=== PATIENT | male | born 1940 | race Caucasian/White ===

== ENCOUNTER 2016-09-15 11:43 | Inpatient (IN) | payer MEDICARE ==
[~2016-09-15] VITALS: Ht 175.3 cm; Wt 91.6 kg
[2016-09-15] VITALS (10 sets, daily range): BP systolic 108–162; BP diastolic 61–87; PULSE 54–83; RESP 14–24; O2SAT 77–100
[~2016-09-15 11:43] MED LIST: ALBU8.5H2 INHALATION; AMLO5TAB2 PO; FURO40TA4 PO; HYDR-4003 PO; LOVA20TA PO
[2016-09-15] MEDS ORDERED: cefTRIAXone Inj 2,000 MG in IV Premix 1 EACH IV ONE (12:30)
[2016-09-15] MEDS ORDERED: Vancomycin Dose per Pharmacist XX ONE (12:30)
--- NOTE | 2016-09-15 12:37 | ABG ---
DateTimeAnalyzed 12:32:00 -_ pH ____7.240 - pCO2 ___78.9__ -mmHg pO2 ___41.2__ -mmHg HCO3- ___32.6__ -mmol/L ABE ____1.9__ -mmol/L tHb ___17.0__ -g/dL O2Hb ___65.1__ -% COHb ____2.0__ -% MetHb ____0.8__ -% sO2 ___67.0__ -% FIO2 __100.0__ -% Drawn By RN - Date/Time Notified____ 12:37:00 -_ Liter_Flow ___15.0__ -L/min Oxygen Device 1 NON RE-CHANDLER - Notified By btl - Notified Whom ___Dr. Laursen - B 768 -mmHg tO2 ___15.5__ -Vol%
--- NOTE | 2016-09-15 12:40 | ED.REPORT ---
HPI-Altered Mental Status Date of Service Sep 15, 2016 ED Provider: Jacqueline Padilla MD 76 male with reported past medical history of chronic back pain on narcotic pain medication presents to ED with secondary to 2 weeks of increasing somnolence and generalized weakness and lethargy. Per patient's , patient had a ground-level fall on August 28 striking head. He did not seek medical attention after fall. Over the last 2 weeks since states he has become increasingly sleepy and tired with a decrease in appetite. At time of interview to emergency department patient was saturating at mid 70s on nasal cannula. Nursing Notes Stated Complaint: WEAKNESS,NOT EATING Chief Complaint: General Complaint Nursing Notes Reviewed: Yes Allergies: Coded Allergies: No Known Allergies (Unverified Allergy, Unknown, 09/15/16) Scheduled Albuterol HFA (Proair HFA) 8.5 Gm Hfa.aer.ad 2 PUFFS INHALATION Q4H Amlodipine (Amlodipine) 5 Mg Tablet 5 MG PO DAILY Furosemide (Furosemide) 40 Mg Tablet 40 MG PO DAILY Lovastatin (Lovastatin) 20 Mg Tablet 20 MG PO HS Scheduled PRN Hydrocodone-Acetaminophen 5-325 mg (Hydrocodone-Acetaminophen 5-325 mg) 1 Each Tablet 1 TABLET PO Q4H PRN PRN For Pain General Time Seen by MD: 12:20 Chief Complaint Decreased alertness Hx Obtained From: Patient, Spouse Arrived By: Walk-in Sudden in Onset?: Yes Onset Occurred: More than a week ago... (2 weeks) Context of Onset: Head injury Symptom Duration: Since onset Progression since Onset: Gradually worsening Similar Sx Previous: Yes Past Medical History Smoking History Former Smoker Review of Systems Unable to Obtain ROS Patient condition Complete sys rev & neg: except as marked. Physical Exam General: Lethargic, responds to voice and painful stimuli cannot or will not answer questions. Extremely somnolent HEENT: Normocephalic, atraumatic. External ears without defect. Pupils equal, round, and reactive to light and accommodation Neck: No jugular venous distension. No lymphadenopathy or thyromegaly. Cardiovascular: Regular rate and rhythm with no murmurs, rubs, or gallops appreciated Pulmonary: Clear to auscultation bilaterally with no crackles, wheezes, or rhonchi. Normal respiratory effort with no use of accessory muscles. Abdomen: Distended abdomen pain to palpation right quadrants, no appreciable fluid wave posterior anasarca present. d. Extremities: Bilateral lower extremity edema extending to the thigh into pelvis. Skin: Lower extremities warm to touch, poor turgor turgor, bilateral erythema with pain to palpation. Psychiatric: Somnolent unable to follow most commands. Initial Vital Signs Vital Signs (First) Date Time Temp Pulse Resp B/P Pulse Ox O2 Delivery O2 Flow Rate FiO2 09/15/16 11:56 36.3 54 21 108/61 77 Room Air Initial VS: Reviewed Interpretation & Diagnostics CT BRAIN WITHOUT CONTRAST IMPRESSION: No acute intracranial abnormality. Dictated by: Minnie Nguyễn M.D. on 09/15/2016 at 13:00 X-RAY CHEST ONE VIEW, PORTABLE IMPRESSION: Small right pleural effusion and basilar opacity consistent with compressive atelectasis, pneumonia or neoplasm. Continued radiographic surveillance to resolution is recommended. Dictated by: Hermilo Turner RRA Interpreted: Aba Silverman MD on 09/15/2016 at 13:07 Lab Results Interpretation Result Diagram: 09/15/16 1309 09/15/16 1309 Test 09/15/16 13:09 09/15/16 14:33 White Blood Count 6.3th/mm3 (3.8-10.1) Red Blood Count 6.41mil/mm3 (4.40-5.80) Hemoglobin 16.5g/dL (13.8-17.2) Hematocrit 55.5% (41.0-50.0) Mean Corpuscular Volume 86.6fL (81-100) Mean Corpuscular Hemoglobin 25.7pg (27.0-35.0) Mean Corpuscular Hemoglobin Concent 29.7% (32.0-37.0) Red Cell Distribution Width 19.1% (12.3-15.4) Platelet Count 190bil/L (150-400) Neutrophils (%) (Auto) 73.7% (40-74) Lymphocytes (%) (Auto) 15.5% (14-46) Monocytes (%) (Auto) 9.1% (4-12) Eosinophils (%) (Auto) 1.0% (0-5) Basophils (%) (Auto) 0.5% (0-3) Sodium Level 142mEq/L (134-144) Potassium Level 5.7mEq/L (3.5-5.2) Chloride Level 102mEq/L (97-108) Carbon Dioxide Level 29mmol/L (18-29) Blood Urea Nitrogen 52mg/dL (8-27) Creatinine 1.24mg/dL (0.76-1.27) Estimat Glomerular Filtration Rate 60mL/min (>59) Glucose Level 92mg/dL (60-99) Lactic Acid Level 0.9mmol/L (0.4-2.0) Calcium Level 9.5mg/dL (8.5-10.1) Total Bilirubin 0.6mg/dL (0.0-1.2) Aspartate Amino Transf (AST/SGOT) 33U/L (0-50) Alanine Aminotransferase (ALT/SGPT) 21U/L (0-44) Alkaline Phosphatase 76U/L (25-160) Total Protein 7.7g/dL (6.4-8.4) Albumin 4.1g/dL (3.4-5.0) Procalcitonin < 0.05ng/mL (See Comment) Ammonia 47ug/dL (18-53) Lab Results Interpretation: Blood Gas Report: pH: 7.240 pCO2: 79 cHCO3-: 32.6 cBase: 1.9 After one hour of BIPAP, BLood Gas is repeated with minimal changes: pH: 7.238 pCO2: pO2: 76.6 cHCO3-: 31.9 cBase: 1.6 However, pt is able to talk in full sentences and is behaving appropriately X-Ray Chest Interpretation Chest Xray Interpretation: IMPRESSION: Small right pleural effusion and basilar opacity consistent with compressive atelectasis, pneumonia or neoplasm. Continued radiographic surveillance to resolution is recommended. Dictated by: Hermilo SANTACRUZ Interpreted: Aba Silverman MD on 09/15/2016 at 13:07 Interpretation / Wet Read by: Interpret - Radiologist CT Head Interpretation IMPRESSION: No acute intracranial abnormality. Dictated by: Minnie Nguyễn M.D. on 09/15/2016 at 13:00 Study: Head CT no contrast Interpretation / Wet Read by: Interpret - Radiologist Miscellaneous: Atrophy - moderate Re-Eval/Medical Decision Med Decision/Clinical Course at time of initial interview patient saturating mid 70s on nasal cannula and was extremely somnolent and difficult to arouse, this was increased to high flow O2 with nonrebreather with improvement of saturation and slight improvement in patient's mentation. patient initially given Narcan secondary to known use of prescription narcotic medication with no effect. A CT brain noncontrast showed no evidence of intracranial abnormality. ABGs showed a partially compensated respiratory acidosis. patient placed on BiPAP with a near immediate positive response, patient became more alert and oriented and was able to answer questions appropriately. repeat ABGs approximately 1 hour after being taken off BiPAP still showed a respiratory acidosis. Concern for infection remained though white blood cell count was within normal limits and procalcitonin was unremarkable as well. Chest x-ray showed small right pleural effusion possibly atelectasis pneumonia or neoplasm. CT chest and abdomen showed significant pleural effusion in the right lung, differential includes CHF, pneumonia or neoplastic process. Patient started on ceftriaxone and vancomycin in the ED blood cultures obtained prior to ABX administration. Patient will most likely need a diagnostic thoracentesis for further evaluation. Patient admitted to PCC setting physician Dr. Garcia. Source of Hx: Old records, Family Re-Evaluation/Progress #1: Time of Eval: 12:44 Re-Evaluation/Progress Note: Narcan did not affect the pt's symptoms. Re-Evaluation/Progress #2: Time of Eval: 13:09 Re-Evaluation/Progress Note: Pt is rechecked. He appears to be resting comfortbaly, he is informed of his lab and imaging results and the plan to continue to obtain additional information prior to making a plan. Counseled Regarding: Diagnosis, Lab results, Need for follow-up, When/why to return to ED Patient Discharge & Departure Shift Change Sign-Out Patient Care Transferred: Yes Discussed Complaint(s): Yes Laboratory Evaluation: Lab evaluation discussed Imaging Studies: Imaging discussed Response to Therapy: Improved Impression: Primary Impression: Acute hypercapnic respiratory failure Disposition: ADMITTED TO HOSPITAL Discharge Condition All VS Reviewed: Yes Condition: Stable Referrals: Eugenio Yo MD (PCP) Crit Care Except Billable Proc Time Spent: 30-74 minutes Services Performed: Patient management by me, Time spent at bedside, Reviewing test results, Reviewing imaging, Discussing patient care, Documentation in record, Time with fam/surrogate Scribe Attestation Portions of this note were transcribed by Ronit Gray. I, Dr. Padilla personally performed the history, physical exam and medical decision-making; I reviewed and confirmed the accuracy of the information in the transcribed note. Signed by: Patrizia Anderson, 09/15/2016 14:50 Attending Statement Pt seen and examined Decreased mental status - on chronic narcotics, recent fall with head injury ( not yet evaluated), cough, LE edema/redness Initial concerns: subdural (normal head CT), sepsis (labs, cultures, abx started ), accidental narcotic overdose (no response to narcan), CHF (no lasix yet due to hemodynamic concerns). CXR returns with Right plural effusion - CT chest pending (?pneumonia/CHF/tumor) Respiratory failure with hypercarbia. BiPap started, tolerating. DNR/DNI Will need PCU admission. Discussed with Swing shift Hospitalist Agree with plan as above copies to: Eugenio Yo MD, GILES A DO Sep 15, 2016 12:40 DAVID GRAY Sep 15, 2016 12:44 Jacqueline Padilla MD Sep 15, 2016 15:20
--- NOTE | 2016-09-15 13:02 | DRSVH ---
PROCEDURE: CT BRAIN WITHOUT CONTRAST ([id number]) INDICATIONS: Decreased LOC TECHNIQUE: Noncontrast 4.5 mm thick angled axial sections acquired from the foramen magnum to the vertex, with c oronal reformats. COMPARISON: None. FINDINGS: Image quality: Excellent. CSF spaces: Basal cisterns are patent. No extra-axial fluid collections. The ventricles are symmet rashid in size and shape. Brain: No intracranial bleeds or masses. There is cerebral volume loss for age, with resultant vent ricular and sulcal prominence. There are periventricular and deep white matter chronic small vessel ischemic changes. There is intracranial internal carotid artery atherosclerosis. Skull and face: Calvarium and visualized facial bones appear intact, without suspicious lesions. Sinuses: Visualized sinuses and mastoids are clear. IMPRESSION: No acute intracranial abnormality. Dictated by: Minnie Nguyễn M.D. on 09/15/2016 at 13:00 Approved by: Minnie Nguyễn M.D. on 09/15/2016 at 13:00
--- NOTE | 2016-09-15 13:08 | DRSVH ---
PROCEDURE: X-RAY CHEST ONE VIEW, PORTABLE ([id number]) INDICATIONS: Previous Trauma TECHNIQUE: One view of the chest was acquired. COMPARISON: [facility], CT, CT CHEST W CON, 09/15/2016, 14:45. [facility], CT, CT CHEST WO CON, 06/06/2015, 15:47. FINDINGS: Surgical changes and devices: None. Lungs and pleura: Small right pleural effusion present in right basilar airspace opacity. Lungs othe rwise clear. Mediastinum: Mediastinal contours appear normal. Heart size is normal. Bones and chest wall: No suspicious bony lesions. Overlying soft tissues appear unremarkable. IMPRESSION: Small right pleural effusion and basilar opacity consistent with compressive atelectasis, pneumonia or neoplasm. Continued radiographic surveillance to resolution is recommended. Dictated by: Hermilo Turner Rocky Interpreted: Aba Silverman MD on 09/15/2016 at 13:07 Transcribed by: WILMER on 09/15/2016 at 13:07 Approved by: Aba Silverman M.D. on 09/15/2016 at 17:04
[2016-09-15 13:20] LABS: BASOPHILS % (AUTO) 0.5 % (0-3); MONOCYTES % (AUTO) 9.1 % (4-12); Mean Corpuscular Hemoglobin 25.7 pg (27.0-35.0); Mean Corpuscular Volume 86.6 fL (81-100); NEUTROPHILS % (AUTO) 73.7 % (40-74); Platelet Count 190 bil/L (150-400)
[2016-09-15] MEDS ORDERED: Vancomycin Inj 1,750 MG in Dextrose 5% 500 ML IV ONE (13:25)
--- NOTE | 2016-09-15 14:23 | ABG ---
DateTimeAnalyzed 14:18:00 -_ pH ____7.238 - 7.350 7.450 pCO2 ___77.4__ -mmHg 35.0 45.0 pO2 ___76.6__ -mmHg 69.0 116 HCO3- ___31.9__ -mmol/L 22.0 26.0 ABE ____1.6__ -mmol/L -2.0 2.0 tHb ___16.2__ -g/dL O2Hb ___90.8__ -% COHb ____1.8__ -% MetHb ____0.8__ -% sO2 ___93.2__ -% 25.0 FIO2 ___50.0__ -% Set_RR ___18.0__ -b/min Drawn By btl - Date/Time Notified____ 14:22:00 -_ Spontaneous_RR ___26.0__ -b/min Oxygen Device 1 ____BIPAP - Notified By BTL - Notified Whom ___Dr. Laursen - B 767 -mmHg tO2 ___20.6__ -Vol% Mark test N/A -
--- NOTE | 2016-09-15 15:14 | DRSVH ---
PROCEDURE: CT CHEST WITH CONTRAST ([id number]) INDICATIONS: Poss Pnemonia,shortness of breath TECHNIQUE: After the administration of intravenous contrast, 5 mm thick sections acquired from the pulmonary api tiffany to the posterior costophrenic angles. 7 mm thick coronal and sagittal MIP reformats were acquire d. For radiation dose reduction, the following was used: automated exposure control, adjustment of mA and/or kV according to patient size. COMPARISON: [facility], CT, CT CHEST WO CON, 06/06/2015, 15:47. [facility], CR, XR CHEST 1VW (PORTABLE), 09/15/2016, 12:29. FINDINGS: Image quality: Excellent. Lungs and pleura: Small right-sided pleural fluid collection is noted. Trace left-sided pleural fluid collection is noted. 1.4 and 1.5 cm calcifications involving the right basilar pleura are stable com pared to prior examination. Consultations are suspicious for thoracolithiasis. Consolidation noted in the right lung base which could represent atelectasis, aspiration or pneumonia. Central and peripher al airways are patent and normal in caliber. Mediastinum: Heart size is normal. Mitral annulus calcifications are noted. Atherosclerotic calcific ations are noted in the aorta, great vessels and coronary vasculature. No pericardial effusion. No m ediastinal or hilar adenopathy by size criteria. Thoracic aorta and central pulmonary arteries are n ormal in size. Esophagus is normal in caliber. No hiatal hernia. Bones and chest wall: Degenerative disc disease and facet arthropathy are noted in the spine. No ukmar picious bony lesions. No vertebral body compression fractures. No axillary or supraclavicular adeno lin by size criteria. Thyroid gland is within normal limits. Probable 1.8 cm in diameter a sebaceo us cyst is noted in the subcutaneous fat of the upper midline of the chest. Abdomen: Ascites is noted the visualized portion the abdomen. Liver has slightly nodular margins sugg esting hepatic cirrhosis; please correlate to clinical and laboratory data. IMPRESSION: 1. Right basilar opacity with small right-sided pleural fluid collection compatible with pneumonia, a spiration or compressive atelectasis. Please correlate with clinical and laboratory data. 2. Right pleural calcification stable compared to 06/06/2015. 3. Atherosclerosis including the coronary vascular. 4. Ascites. 5. Liver has slightly nodular margins suspicious for hepatic cirrhosis. Please correlate to clinical and laboratory data. Dictated by: Zuleyma Gorman MD, PhD on 09/15/2016 at 15:12 Approved by: Zuleyma Gorman MD, PhD on 09/15/2016 at 15:12
[2016-09-15] MEDS ORDERED: Ondansetron 2 mg/mL 2 mL Inj IVPUSH PRN (15:25)
[2016-09-15] MEDS ORDERED: Polyethylene Glycol (PEG) 17 Gm Powder PO PRN (15:25)
[2016-09-15] MEDS ORDERED: Alum-Mag Hydrox-Simeth 30 mL Suspension PO PRN (15:25)
[2016-09-15] MEDS ORDERED: MethylprednisoLONE Sodium Succinate 62.5 mg/mL 2 mL Inj IVPUSH ONE (15:30)
[2016-09-15] MEDS ORDERED: CHOL100043 PO (15:50)
[2016-09-15] MEDS ORDERED: ASPI-973 PO (15:50)
[2016-09-15] MEDS: Heparin 5,000 Unit/mL Inj SUBQ SCH (18:24)
--- NOTE | 2016-09-15 19:10 | NUR ---
admit from ER pt. brought to 2021 at 1730 this evening; vss; bipap at 50% per RT; continuous pulse ox in place, sats 95-97%. Pt. drowsy but easy to awaken by name, oriented x3; answering questions appropriately. SCD's in place. Denies pain or discomfort.
[2016-09-15] MEDS: Albuterol-Ipratropium 3 mL Inhalation Solution NEB SCH (20:04)
--- NOTE | 2016-09-15 20:43 | ABG ---
DateTimeAnalyzed 20:39:00 -_ pH ____7.220 - 7.350 7.450 pCO2 ___78.6__ -mmHg 35.0 45.0 pO2 ___68.1__ -mmHg 69.0 116 HCO3- ___31.0__ -mmol/L 22.0 26.0 ABE ____0.2__ -mmol/L -2.0 2.0 tHb ___16.9__ -g/dL O2Hb ___88.5__ -% COHb ____1.6__ -% MetHb ____0.9__ -% sO2 ___90.8__ -% 25.0 FIO2 ___21.0__ -% PEEP ____5.0__ -cmH2O Vt __388.0__ -L Drawn By MD - Date/Time Notified____ 20:43:00 -_ Spontaneous_RR ___16.0__ -b/min Oxygen Device 1 ____BIPAP - Notified By MD - Notified Whom RN E.KNAPP - B 766 -mmHg tO2 ___21.0__ -Vol% OrderingPhysicianInitials mf - Mark test N/A -
--- NOTE | 2016-09-15 22:10 | ABG ---
DateTimeAnalyzed 22:05:00 -_ pH ____7.236 - 7.350 7.450 pCO2 ___76.0__ -mmHg 35.0 45.0 pO2 ___72.4__ -mmHg 69.0 116 HCO3- ___31.1__ -mmol/L 22.0 26.0 ABE ____0.8__ -mmol/L -2.0 2.0 tHb ___16.6__ -g/dL O2Hb ___90.1__ -% COHb ____1.7__ -% MetHb ____0.9__ -% sO2 ___92.5__ -% 25.0 FIO2 ___21.0__ -% PEEP ____5.0__ -cmH2O Set_RR ___18.0__ -b/min Vt __607.0__ -L Drawn By MD - Date/Time Notified____ 22:09:00 -_ Spontaneous_RR ___18.0__ -b/min Oxygen Device 1 ____BIPAP - Notified By MD - Notified Whom RN E. KNAPP - B 766 -mmHg tO2 ___21.0__ -Vol% Mark test N/A -
--- NOTE | 2016-09-15 23:08 | PCM.HPMED ---
Subjective Date of Service Sep 15, 2016 Primary Provider: Admitting Physician: Primary Care Physician: Eugenio Yo MD Attending Physician: Admit Status: From the Emergency Department, Full Admit, [facility] Telemetry Chief Complaint: Acute Encephalopathy History of Present Illness: Saleem Salinas is a 76 male with Chronic back pain, COPD/asthma, associated with secondary chronic polycythemia presents to ED with secondary to 2 weeks of increasing somnolence and generalized weakness and lethargy. per patient's , patient had a ground-level fall on August 28 striking head. He did not seek medical attention after fall. Over the last 2 weeks since states he has come increasingly sleepy and tired with a decrease in appetite. Some reported dry cough but unclear if patient had fever or chills. No sick contacts at the home Case discussed with Dr Dumont, Patient placed in BIPAP with some improvements. left prior to my arrival to the ED. Review of Systems: Pertinent positives as noted in HPI. All other systems were reviewed and are negative Allergies Coded Allergies: No Known Allergies (Unverified Allergy, Unknown, 09/15/16) Home Medications Saleem Salinas [id number] 1940 05/28/2016 11:20 AM 09/24 amlodipine 5 mg tablet TAKE ONE TABLET BY MOUTH EVERY DAY aspirin 81 mg Tab take 1 tablet (81MG) by ORAL route 2-3 times a week furosemide 40 mg tablet TAKE ONE TABLET BY MOUTH ONCE A DAY hydrocodone 5 mg-acetaminophen 325 mg tablet take 1 tablet by oral route 1-2 times a day as needed for pain lovastatin 20 mg tablet take 1 tablet by oral route every day with the evening meal ProAir HFA 90 mcg/actuation aerosol inhaler INHALE ONE TO TWO PUFFS BY MOUTH EVERY 4 TO 6 HOURS NEEDED Vitamin D 1,000 unit Cap 1 tablet po QD PMH COPD/asthma, associated with secondary chronic polycythemia. Hematocrit was 58 % in June 2015. Insomnia Hyperlipidemia Hypertension Aortic stenosis Back pain Erythrocytosis Prediabetes Gout . Surgical History none reported Family History Father had Prostate Cancer Mother had Stroke Social History Hx Alcohol Use: Yes (current) Hx Tobacco Use: Yes Smoking Status: Former Smoker (quit in 1998) Living Arrangement: with Family Exam Vital Signs Vital Sign - Last Date Time Temp Pulse Resp B/P Pulse Ox O2 Delivery O2 Flow Rate FiO2 09/15/16 14:57 74 14 162/87 95 BiPAP 09/15/16 11:56 36.3 Exam General: Alert, Oriented X3, Cooperative, Mild respiratory acute Distress Eyes: PERRLA, Scleral Anicteric Mouth: Mouth Normal, Mucous Membranes Moist/[place] Neck: Supple, no Thyromegaly, trachea central. Chest & Lungs: crackles lower right lung field Cardiovascular: Normal S1, Normal S2, No Murmurs/Rubs/Gallops, Regular Rate/ Rhythm, (No JVD Pulses: Radial (present and equal), Dorsalis Pedi (present and equal) Abdomen: Soft, Non-tender, Non-distended, Normoactive bowel tones. Musculoskeletal: Unremarkable. Normal range of motion, no swollen or erythematous joints Extremities: 2 + pitting edema, no cyanosis, no clubbing. Skin: No rashes. Warm and dry, no erythematous areas. Leg venous stasis changes Neurological: Grossly neurologically intact, has generalized weakness, Normal Speech, Sensation Intact Lymphatic: Lymph nodes Cervical and Axillary not palpable. Lab and Diagnostics Labs Laboratory Tests Test 09/15/16 13:09 09/15/16 14:33 White Blood Count 6.3th/mm3 (3.8-10.1) Red Blood Count 6.41mil/mm3 (4.40-5.80) Hemoglobin 16.5g/dL (13.8-17.2) Hematocrit 55.5% (41.0-50.0) Mean Corpuscular Volume 86.6fL (81-100) Mean Corpuscular Hemoglobin 25.7pg (27.0-35.0) Mean Corpuscular Hemoglobin Concent 29.7% (32.0-37.0) Red Cell Distribution Width 19.1% (12.3-15.4) Platelet Count 190bil/L (150-400) Neutrophils (%) (Auto) 73.7% (40-74) Lymphocytes (%) (Auto) 15.5% (14-46) Monocytes (%) (Auto) 9.1% (4-12) Eosinophils (%) (Auto) 1.0% (0-5) Basophils (%) (Auto) 0.5% (0-3) Sodium Level 142mEq/L (134-144) Potassium Level 5.7mEq/L (3.5-5.2) Chloride Level 102mEq/L (97-108) Carbon Dioxide Level 29mmol/L (18-29) Blood Urea Nitrogen 52mg/dL (8-27) Creatinine 1.24mg/dL (0.76-1.27) Estimat Glomerular Filtration Rate 60mL/min (>59) Glucose Level 92mg/dL (60-99) Lactic Acid Level 0.9mmol/L (0.4-2.0) Calcium Level 9.5mg/dL (8.5-10.1) Total Bilirubin 0.6mg/dL (0.0-1.2) Aspartate Amino Transf (AST/SGOT) 33U/L (0-50) Alanine Aminotransferase (ALT/SGPT) 21U/L (0-44) Alkaline Phosphatase 76U/L (25-160) Total Protein 7.7g/dL (6.4-8.4) Albumin 4.1g/dL (3.4-5.0) Procalcitonin < 0.05ng/mL (See Comment) Ammonia 47ug/dL (18-53) Microbiology 09/15/16 Blood Culture, Received Pending Result Diagram: 09/15/16 1309 09/15/16 1309 X-Rays, CTs and MRIs X-RAY CHEST ONE VIEW, PORTABLE ([id number]) INDICATIONS: Previous Trauma TECHNIQUE: One view of the chest was acquired. COMPARISON: [facility], CT, CT CHEST WO CON, 06/06/2015, 15:47. FINDINGS: Surgical changes and devices: None. Lungs and pleura: Small right pleural effusion present in right basilar airspace opacity. Lungs otherwise clear. Mediastinum: Mediastinal contours appear normal. Heart size is normal. Bones and chest wall: No suspicious bony lesions. Overlying soft tissues appear unremarkable. IMPRESSION: Small right pleural effusion and basilar opacity consistent with compressive atelectasis, pneumonia or neoplasm. Continued radiographic surveillance to resolution is recommended. Dictated by: Hermilo Turner RRA Interpreted: Aba Silverman MD on 09/15/2016 at 13:07 Transcribed by: WILMER on 09/15/2016 at 13:07 CT BRAIN WITHOUT CONTRAST ([id number]) INDICATIONS: Decreased LOC TECHNIQUE: Noncontrast 4.5 mm thick angled axial sections acquired from the foramen magnum to the vertex, with coronal reformats. COMPARISON: None. FINDINGS: Image quality: Excellent. CSF spaces: Basal cisterns are patent. No extra-axial fluid collections. The ventricles are symmetric in size and shape. Brain: No intracranial bleeds or masses. There is cerebral volume loss for age , with resultant ventricular and sulcal prominence. There are periventricular and deep white matter chronic small vessel ischemic changes. There is intracranial internal carotid artery atherosclerosis. Skull and face: Calvarium and visualized facial bones appear intact, without suspicious lesions. Sinuses: Visualized sinuses and mastoids are clear. IMPRESSION: No acute intracranial abnormality. Dictated by: Minnie Nguyễn M.D. on 09/15/2016 at 13:00 Approved by: Minnie Nguyễn M.D. on 09/15/2016 at 13:00 CT CHEST WITH CONTRAST ([id number]) INDICATIONS: Poss Pnemonia,shortness of breath TECHNIQUE: After the administration of intravenous contrast, 5 mm thick sections acquired from the pulmonary apices to the posterior costophrenic angles. 7 mm thick coronal and sagittal MIP reformats were acquired. For radiation dose reduction , the following was used: automated exposure control, adjustment of mA and/or kV according to patient size. COMPARISON: [facility], CT, CT CHEST WO CON, 06/06/2015, 15:47. [facility], CR, XR CHEST 1VW (PORTABLE), 09/15/2016, 12:29. FINDINGS: Image quality: Excellent. Lungs and pleura: Small right-sided pleural fluid collection is noted. Trace left-sided pleural fluid collection is noted. 1.4 and 1.5 cm calcifications involving the right basilar pleura are stable compared to prior examination. Consultations are suspicious for thoracolithiasis. Consolidation noted in the right lung base which could represent atelectasis, aspiration or pneumonia. Central and peripheral airways are patent and normal in caliber. Mediastinum: Heart size is normal. Mitral annulus calcifications are noted. Atherosclerotic calcifications are noted in the aorta, great vessels and coronary vasculature. No pericardial effusion. No mediastinal or hilar adenopathy by size criteria. Thoracic aorta and central pulmonary arteries are normal in size. Esophagus is normal in caliber. No hiatal hernia. Bones and chest wall: Degenerative disc disease and facet arthropathy are noted in the spine. No suspicious bony lesions. No vertebral body compression fractures. No axillary or supraclavicular adenopathy by size criteria. Thyroid gland is within normal limits. Probable 1.8 cm in diameter a sebaceous cyst is noted in the subcutaneous fat of the upper midline of the chest. Abdomen: Ascites is noted the visualized portion the abdomen. Liver has slightly nodular margins suggesting hepatic cirrhosis; please correlate to clinical and laboratory data. IMPRESSION: 1. Right basilar opacity with small right-sided pleural fluid collection compatible with pneumonia, aspiration or compressive atelectasis. Please correlate with clinical and laboratory data. 2. Right pleural calcification stable compared to 06/06/2015. 3. Atherosclerosis including the coronary vascular. 4. Ascites. 5. Liver has slightly nodular margins suspicious for hepatic cirrhosis. Please correlate to clinical and laboratory data. Dictated by: Zuleyma Gorman MD, PhD on 09/15/2016 at 15:12 Approved by: Zuleyma Gorman MD, PhD on 09/15/2016 at 15:12 Assessment & Plan Saleem Salinas is a 76 male with Chronic back pain, COPD/asthma, associated with secondary chronic polycythemia presents to ED with secondary to 2 weeks of increasing somnolence and generalized weakness and lethargy. 1. Acute Hypercapnic Hypoxic Respiratory failure secondary to COPD exacerbation. Present on admission Patient likely had a pulmonary infection that triggered his COPD exacerbation. Pulmonary embolism less likely with Wells score 0 - continue BIPAP support, patient wish to intubate if needed - systemic steroids Solu-Medrol 125 mcg IV - DuoNeb treatments scheduled - consider Pulmonology consult in the morning depending on clinical course 2. Acute Encephalopathy. Present on admission Likely related to his respiratory failure and infection. CT head negative for bleeding - monitor for acute neurological deficits - avoid benzodiazepines, high risk for delirium 3. Possible Community acquired pneumonia. Present on admission Possibility the patient may have aspirated but unclear. He may be immunocompromised from his polycythemia -continue Ceftriaxone IV for empiric antibiotics - sputum and blood cultures 4. Hypertension Presumed stable and currently at good levels - continue Amlodipine 5 mg daily 5. Dyslipidemia - continue Lovastatin 20 mg daily - Acetaminophen as needed for mild pain/fever/headache - Bowel regimen as needed - Antiemetic as needed Patient admitted under inpatient status with expected length of stay > 2 midnights for severity of present symptoms, complexities of treatment plan and risk for adverse event . Resuscitation Status: CPR: Attempt Resuscitation Karri Rios MD Sep 15, 2016 15:24
[2016-09-16] VITALS (13 sets, daily range): BP systolic 113–144; BP diastolic 63–88; PULSE 66–83; RESP 18–24; O2SAT 92–98
[2016-09-16] MEDS: Albuterol-Ipratropium 3 mL Inhalation Solution NEB SCH ×6 (00:44→20:04)
[2016-09-16] MEDS: Heparin 5,000 Unit/mL Inj SUBQ SCH ×2 (00:55→08:38)
--- NOTE | 2016-09-16 01:04 | ABG ---
DateTimeAnalyzed 00:59:00 -_ pH ____7.234 - 7.350 7.450 pCO2 ___76.7__ -mmHg 35.0 45.0 pO2 ___73.9__ -mmHg 69.0 116 HCO3- ___31.3__ -mmol/L 22.0 26.0 ABE ____0.8__ -mmol/L -2.0 2.0 tHb ___16.8__ -g/dL O2Hb ___90.4__ -% COHb ____1.8__ -% MetHb ____0.8__ -% sO2 ___92.8__ -% 25.0 FIO2 ___21.0__ -% PEEP ____5.0__ -cmH2O Set_RR ___18.0__ -b/min Vt __669.0__ -L Drawn By MD - Date/Time Notified____ 01:03:00 -_ Spontaneous_RR ___21.0__ -b/min Oxygen Device 1 ____BIPAP - Notified By MD - Notified Whom _E KNAPP - B 764 -mmHg tO2 ___21.3__ -Vol% OrderingPhysicianInitials mf - Mark test N/A -
[2016-09-16 05:06] LABS: BASOPHILS % (AUTO) 0 % (0-3); EOSINOPHILS % (AUTO) 0 % (0-5); MONOCYTES % (AUTO) 0.7 % (4-12); Mean Corpuscular Hemoglobin 25.5 pg (27.0-35.0); Mean Corpuscular Volume 87.3 fL (81-100); NEUTROPHILS % (AUTO) 89.4 % (40-74); Platelet Count 175 bil/L (150-400)
--- NOTE | 2016-09-16 05:54 | ABG ---
DateTimeAnalyzed 05:50:00 -_ pH ____7.243 - 7.350 7.450 pCO2 ___76.6__ -mmHg 35.0 45.0 pO2 ___66.4__ -mmHg 69.0 116 HCO3- ___31.9__ -mmol/L 22.0 26.0 ABE ____1.5__ -mmol/L -2.0 2.0 tHb ___16.7__ -g/dL O2Hb ___88.6__ -% COHb ____1.7__ -% MetHb ____0.9__ -% sO2 ___91.0__ -% 25.0 FIO2 ___40.0__ -% PEEP ____5.0__ -cmH2O Set_RR ___18.0__ -b/min Vt __696.0__ -L Drawn By RB - Date/Time Notified____ 05:54:00 -_ Spontaneous_RR ___18.0__ -b/min Oxygen Device 1 ____BIPAP - Notified By RB - Notified Whom RN - B 761 -mmHg tO2 ___20.8__ -Vol% Mark test _Positive -
[2016-09-16 06:16] LABS: APPEARANCE,URINE CLEAR (CLEAR,HAZY); COLOR,URINE YELLOW (YELLOW); OCCULT BLOOD,URINE NEGATIVE (NEGATIVE); PH,URINE 5.5 (5.0-8.0); UROBILINOGEN,URINE NORMAL (NORMAL)
--- NOTE | 2016-09-16 06:33 | NUR ---
Mentation/BiPAP Pt noted to be very somnolent at beginning of shift after day nurse stated he was sleepy but oriented x3 when he first arrived to floor, pt could barely open eyes and made grunting noises in response to questions. MD notified of this and ordered repeat ABGs, MD notified of worsened acidosis and adjustment to BiPAP settings by RT. With reassessed ABGs pt continues to have partially compensate respiratory acidosis. Pt continues to be very somnolent and hard to wake, occasionally answers that he is in the hospital but very difficult to understand. Night MD aware of all this. No other neuro deficits noted. BIPAP now set at 60% Sitter at bedside d/t somnolence/confusion and use of BiPAP. Vitals stable. Tele SR w/ IVCD
[2016-09-16] MEDS ORDERED: cefTRIAXone Inj 2,000 MG in IV Premix 1 EACH IV SCH (08:30)
[2016-09-16] MEDS ORDERED: 0.9% Sodium Chloride 250 ML ONE (08:39)
[2016-09-16 09:38] LABS: Mean Corpuscular Hemoglobin 25.7 pg (27.0-35.0); Mean Corpuscular Volume 87.2 fL (81-100)
[2016-09-16] MEDS ORDERED: 0.9% Sodium Chloride 1,000 ML ONE (10:34)
[2016-09-16] MEDS ORDERED: Calcium GLUCO 10% (mEq) Inj 4.65 MEQ in Dextrose 5% 50 ML IV ONE (10:45)
[2016-09-16] MEDS ORDERED: Calcium GLUCOnate 10% (Gm) 1 Gm/10 mL Inj IV ONE (11:00)
[2016-09-16] MEDS: MethylprednisoLONE Sodium Succinate 40 mg/mL Inj IVPUSH SCH ×2 (13:13→17:35)
--- NOTE | 2016-09-16 13:15 | ABG ---
DateTimeAnalyzed 13:11:00 -_ pH ____7.297 - 7.350 7.450 pCO2 ___64.6__ -mmHg 35.0 45.0 pO2 ___59.7__ -mmHg 69.0 116 HCO3- ___30.6__ -mmol/L 22.0 26.0 ABE ____2.1__ -mmol/L -2.0 2.0 tHb ___16.6__ -g/dL O2Hb ___87.3__ -% COHb ____1.5__ -% MetHb ____0.9__ -% sO2 ___89.4__ -% 25.0 FIO2 ___30.0__ -% PEEP ____5.0__ -cmH2O Set_RR ___18.0__ -b/min Vt __500.0__ -L Drawn By as - Date/Time Notified____ 13:15:00 -_ Spontaneous_RR ___18.0__ -b/min Oxygen Device 1 ____BIPAP - Notified By ams - Notified Whom dr mccart - B 759 -mmHg tO2 ___20.3__ -Vol% Mark test _Positive -
[2016-09-16] MEDS ORDERED: Insulin Human REGular-Omnicell 100 Unit/mL IV ONE (13:20)
[2016-09-16] MEDS ORDERED: Heparin 5,000 Unit/mL Inj IVPUSH PRN (14:55)
[2016-09-16] MEDS: Erythromycin 0.5% 3.5 Gm Ophthalmic Ointment BOTH_EYES SCH ×2 (15:06→21:50)
[2016-09-16] MEDS: Lactated Ringer's 1,000 ML IV SCH (15:07)
[2016-09-16] MEDS: Heparin 25K Unit/500mL 0.45 NS 25,000 UNIT in IV Premix 1 EACH IV SCH (15:30)
[2016-09-16 15:52] LABS: Creatine Kinase 35 U/L (21-232)
[2016-09-16 16:02] LABS: TROPONIN T < 0.010 ug/L (0.0-0.011)
--- NOTE | 2016-09-16 16:13 | CONS ---
[address] [address] CONSULTATION REPORT PATIENT: ANABELA FLOWERS : 1940 MR#: [id number] ADMIT: 09/15/2016 JOB ID: [id number] DATE OF SERVICE: 09/16/2016 CARDIOLOGY CONSULTATION: REASON FOR CONSULT: For the evaluation of EKG rhythm abnormalities. CHIEF COMPLAINT: Altered mental status, weakness and lethargy. Most of the information I gathered through the current chart and talking to the hospitalist team. At present, patient is using BiPAP. He is not very forthcoming with history. PRESENT HISTORY: This 76-year-old male who has a history of COPD, asthma, chronic back pain, secondary chronic polycythemia due to underlying COPD, essential hypertension, hyperlipidemia, moderate aortic stenosis based on echocardiogram done in May 2014, at that time LV ejection fraction 60%-65%, aortic valve area of 1.4 cm2, got admitted to the emergency department yesterday because of above-mentioned chief complaint. According to the history and physical, the patient had a ground level fall on August 28 striking head. He did not seek medical attention. Since then, he is getting more lethargic, sleepiness, tiredness and decrease in appetite. The patient had cough as well. He was brought to the hospital. In the hospital, he is being treated for acute hypercapnic hypoxic respiratory failure due to COPD exacerbation, possibility of community-acquired pneumonia and underlying medical problems. He had an EKG which revealed different atrial arrhythmias. Hence Cardiology consult was sought. When I tried to ask the patient about his previous history of coronary artery disease or chest pain or cardiac history, he is not very forthcoming. At present, he does not appear to be in any significant distress. PAST MEDICAL HISTORY: 1. History of moderate aortic stenosis. 2. COPD. 3. Asthma. 4. Secondary polycythemia. 5. Insomnia. 6. Essential hypertension. 7. Hyperlipidemia. 8. Back pain. 9. Pre-diabetes. 10. Gout. PAST SURGICAL HISTORY: None reported. ALLERGIES: No known allergies. MEDICATIONS AT HOME: 1. Amlodipine 5 mg daily. 2. Aspirin 81 mg daily. 3. Lasix 40 mg daily. 4. Hydrocodone and acetaminophen tablet. 5. Lovastatin 20 mg daily. 6. ProAir inhaler. 7. Vitamin D. SOCIAL HISTORY: 1. History of tobacco abuse. 2. History of alcohol abuse. FAMILY HISTORY: Father had prostate cancer. Mother had a stroke. REVIEW OF SYSTEM: I tried to obtain detailed review of system but the patient is not able to be forthcoming. OBJECTIVE: Blood pressure 144/75, heart rate 74, respiratory rate 21, oxygen saturation 93%. HEENT: No significant anemia, jaundice. Neck: Short, obese. Chest: Decreased air entry. CVS: S1 appears variable. P2 does not appear to be loud. No S3. No S4. Very soft ejection systolic murmur at the base. Abdomen: Markedly obese. Unable to palpate liver or spleen. Extremities: Mild pedal edema. Vascular: No evidence of critical limb ischemia. DESKTOP ENGINEER: The patient can move his extremities. LABORATORIES: Sodium 140, repeat potassium 6.4 and 6.7. repeat is pending. When I talked to the resident, it appears to be that it is a hemolyzed sample. BUN 45, creatinine 1.03. Glucose 120. Total bilirubin, AST, ALT normal. Albumin 3.2. ProBNP 244.8 in December 2012. WBC 1.7, hemoglobin 16.2, platelets 154. This morning polymorph was 89.4. CT chest today revealed right basilar opacity with small right-sided pleural fluid collection compatible with pneumonia or aspiration or compressive atelectasis. Right pleural calcification, coronary artery calcification seen, abdominal ascites seen with nodular margin of liver suggestive of possible cirrhosis. CT brain: No acute intracranial abnormality. EKG on September 15, 2016. The patient has irregular rhythm with underlying right bundle branch block. There appears to be short burst of atrial tachycardia which was nonconducted, like three beats, rate more than 300 likely atrial flutter with underlying sinus rhythm with prolonged first-degree AV block as well. Sometimes there is nonconducted PAC. ASSESSMENT AND PLAN: 1. Different atrial arrhythmias including short burst of atrial flutter with variable block with underlying right bundle branch block, first-degree AV block. There is evidence of Wenckebach on the telemetry as well. However, as far as blood pressure is concerned, the patient is hemodynamically stable. It is happening in the setting of acute hypercapnic hypoxic respiratory failure. The patient had ABG 1 o'clock this morning. At that time pH was 7.23, pCO2 76.7, bicarbonate 31.3 and oxygen saturation 92.8. Repeat at 1:15 p.m. today revealed pH 7.29 with pCO2 64.6, and oxygen saturation 89.4, bicarbonate 30.6. At present the patient is not on AV royal or sinus royal medication. His potassium is high and I was told that it is a hemolyzed sample. Repeat potassium is cooking. The patient has history of moderate aortic stenosis based on echocardiogram in May 2014. The patient also has underlying hypertension and hyperlipidemia. At this point of time from cardiology perspective, will recommend continued telemetry observation. Will obtain 2D echo to make sure no worsening of aortic stenosis. Considering his age, risk factors, looks like patient has underlying conduction problem as well. Will check TSH and CPK troponin. Looks like patient has intermittent atrial flutter atrial tachycardia. However, overall ventricular rate was not high. If there is evidence of true tachybrady syndrome once his current status gets better, he will qualify to get a pacemaker. Will check his TSH as well. Discussed the plan with the hospitalist team. Tomorrow my associate, Dr. Brar, will be available to see the patient. TOTAL TIME SPENT: About 70 minutes. SAMSON
--- NOTE | 2016-09-16 18:44 | NUR ---
Mentation/Potassium: Pt somnolent for approx half of shift. Currently, pt awake, oriented x3, moves all extremities, responds appropriately. O2 sats 94% on 3L NC, no s/s of resp distress noted. Tolerating clear liquids. Critical potassium level, MD notified, Calcium gluconate/insulin/D50/Kaexalate given as ordered, repeat K 5.7. Care ongoing.
--- NOTE | 2016-09-16 19:57 | PCM.CHPMED ---
Subjective Date of Service: Sep 16, 2016 Primary Physician: Admitting Physician: Karri Rios MD Primary Care Physician: Eugenio Yo MD Attending Physician: Karri Rios MD Chief Complaint: Chief Complaint: ICU/Pulmonary Consult: History of Present Illness: This is a 76 year old male with history significant for COPD who presented to [facility] with generalized weakness and somnolence. The patient was not able to answer questions today due to BIPAP mask. Briefly from the admit note, the somnolence and weakness began two weeks ago which was accompanied by a decreased appetite. Throughout today he has continued to be somnolent despite BIPAP. Of note, when his oxygen was decreased on the bipap he became more alert. ROS not able to be obtained as patient will not answer questions with bipap mask on. Review of Systems: ROS not able to be obtained due to patient declining questions due to bipap mask. PMH Past Medical History COPD/asthma Chronic polycythemia Insomnia Hyperlipidemia Hypertension Aortic stenosis Back pain Erythrocytosis Prediabetes Gout Bedside Blood Glucose: 82 Allergies: Coded Allergies: No Known Allergies (Unverified Allergy, Unknown, 09/15/16) Social History Hx Alcohol Use: Yes (current)Alcoholic Drinks Per Day: 2 beers/dayHx Tobacco Use: Yes Smoking Status: Former Smoker (quit in 1998) Living Arrangement: with Family Exam Vital Signs Vital Sign - Last Date Time Temp Pulse Resp B/P Pulse Ox O2 Delivery O2 Flow Rate FiO2 09/16/16 13:10 21 93 30 09/16/16 12:05 74 09/16/16 11:27 36.8 144/75 BiPAP Intake and Output 09/15/16 09/15/16 09/16/16 Cumulative From/Thru 14:59 22:59 06:59 09/15/16 11:56 - 09/16/16 06:10 Intake Total 550 ml 550 ml Output Total 400 ml 450 ml 850 ml Balance 150 ml -450 ml -300 ml Intake Oral 0 ml 0 ml IV Total 550 ml 550 ml Output Urine Total 400 ml 450 ml 850 ml # Voids 1 1 # Bowel Movements 1 1 General: Alert Head: Normal Eyes: Scleral Anicteric Chest & Lungs: Coarse breath sounds Cardiovascular: Regular Rate/Rhythm, Normal S1, Normal S2, No Murmurs/Rubs/ Gallops Musculoskeletal: Unremarkable Extremities: Other (Trace edema bilaterally) Neurological: Grossly Neurologically Intact Lab and Diagnostics Result Diagram: 09/16/16 0920 09/16/16 1455 X-Rays, CTs and MRIs CT of chest with contrast on 09/15/2016: IMPRESSION: 1. Right basilar opacity with small right-sided pleural fluid collection compatible with pneumonia, aspiration or compressive atelectasis. Please correlate with clinical and laboratory data. 2. Right pleural calcification stable compared to 06/06/2015. 3. Atherosclerosis including the coronary vascular. 4. Ascites. 5. Liver has slightly nodular margins suspicious for hepatic cirrhosis. Please correlate to clinical and laboratory data. Dictated by: Zuleyma Gorman MD, PhD on 09/15/2016 at 15:12 CT of brain without contrast on 09/15/2016: IMPRESSION: No acute intracranial abnormality. Dictated by: Minnie Nguyễn M.D. on 09/15/2016 at 13:00 Chest x-ray on 09/15/2016: IMPRESSION: Small right pleural effusion and basilar opacity consistent with compressive atelectasis, pneumonia or neoplasm. Continued radiographic surveillance to resolution is recommended. Dictated by: Hermilo Turner RR Interpreted: Aba Silverman MD on 09/15/2016 at 13:07 Additional Diagnostics: 1940 Male DateTimeAnalyzed 13:11:00 -_ pH ____7.297 - 7.350 7.450 pCO2 ___64.6__ -mmHg 35.0 45.0 pO2 ___59.7__ -mmHg 69.0 116 HCO3- ___30.6__ -mmol/L 22.0 26.0 ABE ____2.1__ -mmol/L -2.0 2.0 tHb ___16.6__ -g/dL O2Hb ___87.3__ -% COHb ____1.5__ -% MetHb ____0.9__ -% sO2 ___89.4__ -% 25.0 FIO2 ___30.0__ -% PEEP ____5.0__ -cmH2O Set_RR ___18.0__ -b/min Vt __500.0__ -L Drawn By as - Date/Time Notified____ 13:15:00 -_ Spontaneous_RR ___18.0__ -b/min Oxygen Device 1 ____BIPAP - Notified By ams - Notified Whom dr griffiths - B 759 -mmHg tO2 ___20.3__ -Vol% Mark test _Positive - Assessment & Plan Assessment This is a 76 year old male with COPD who presents with several weeks of generalized weakness and somnolence. The patient was reported to somnolent throughout today. The patients oxygen was decreased by respiratory therapy shortly before we entered the room. We found the patient awake and able to speak (although with difficulty due to the bipap) . The likely reason for this is 1)decreased respiratory drive and 2) perfusion of nonviable lung which occurs due to vasodilation from oxygen (leading to recirculation of carbon dioxide and CO2 retention). There may also be a superimposed viral infection and for this reason we will also run a viral panel. The other issue to consider during this hospital stay is the amount of oxygen the patient will need at home. The patient will likely need either 85% - 88%. We can continue to evaluate during this hospital stay to determine this patient' s ideal oxygen needs. Plan: Acute hypercapnic, hypoxic respiratory failure: -Continue BIPAP during day PRN. If patient becomes confused BIPAP should be used. -BIPAP should be worn during the night. -Bronchodilators Q2-3hours during the day. -Bronchodilators Q1 hour PRN during the night. -PCR viral panel ordered. -At some point patient will need spirometry. Problems: Resuscitation Status: CPR: Attempt Resuscitation Attending Statement The patient was seen and examined together with Dr. Yap on 09/16/2017 and I agree with the history, exam and plan as outlined in the note above. Dm Yap DO Sep 16, 2016 15:51 Sam Bethea MD Oct 14, 2016 10:33
--- NOTE | 2016-09-16 22:57 | PCM.PNMED ---
Subjective Date of Service Sep 16, 2016 Subjective Saleem Salinas is a 76 male with Chronic back pain, COPD/asthma, associated with secondary chronic polycythemia presents to ED with secondary to 2 weeks of increasing somnolence and generalized weakness and lethargy. per patient's , patient had a ground-level fall on August 28 striking head. He did not seek medical attention after fall. Over the last 2 weeks since states he has come increasingly sleepy and tired with a decrease in appetite. Some reported dry cough but unclear if patient had fever or chills. No sick contacts at the home Overnight Events. No acute events overnights. is resting in bed very somnolent. He only moans when agitated. Exam Vital Signs Vital Sign - Last Date Time Temp Pulse Resp B/P Pulse Ox O2 Delivery O2 Flow Rate FiO2 09/16/16 16:30 Supplement Oxygen 09/16/16 16:29 64 93 09/16/16 13:10 21 30 09/16/16 11:27 36.8 144/75 Intake and Output 09/15/16 09/15/16 09/16/16 Cumulative From/Thru 15:00 23:00 07:00 09/15/16 11:56 - 09/16/16 06:10 Intake Total 550 ml 550 ml Output Total 400 ml 450 ml 850 ml Balance 150 ml -450 ml -300 ml Intake Oral 0 ml 0 ml IV Total 550 ml 550 ml Output Urine Total 400 ml 450 ml 850 ml # Voids 1 1 # Bowel Movements 1 1 Exam General: No acute distress, well-developed, well-nourished, appropriately interactive HEENT: Normocephalic, atraumatic. External ears without defect. Pupils equal, round, and reactive to light and accommodation. Anicteric sclerae, moist conjunctivae, and no lid lag. Oropharynx free of erythema and cobble stoning with moist mucosa. Neck: Supple with full range of motion. No jugular venous distension. No bruits. No lymphadenopathy or thyromegaly. Cardiovascular: Regular rate and rhythm with no murmurs, rubs, or gallops appreciated Pulmonary: Clear to auscultation bilaterally with no crackles, wheezes, or rhonchi. Normal respiratory effort with no use of accessory muscles. Abdomen: Bowel tones present. Soft, nontender, nondistended. No hepatosplenomegaly or masses appreciated. Extremities: No clubbing, cyanosis, edema, or lymphadenopathy appreciated. Skin: Normal temperature, turgor, and texture; no rash, ulcers, or subcutaneous nodules appreciated. Neurological: Cranial nerves grossly intact. Normal muscle strength, tone, and bulk. Reflexes, coordination, and sensory function within normal limits. No known gait impairment. Psychiatric: Somnolent. IVs and Medications Medications Reviewed: Medications were reviewed in detail Lab and Diagnostics Result Diagram: 09/16/16 0920 09/16/16 1455 X-Rays, CTs and MRIs X-RAY CHEST ONE VIEW, PORTABLE IMPRESSION: Small right pleural effusion and basilar opacity consistent with compressive atelectasis, pneumonia or neoplasm. Continued radiographic surveillance to resolution is recommended. Dictated by: Hermilo SANTACRUZ Interpreted: Aba Silverman MD on 09/15/2016 at 13:07 CT BRAIN WITHOUT CONTRAST IMPRESSION: No acute intracranial abnormality. Dictated by: Minnie Nguyễn M.D. on 09/15/2016 at 13:00 CT CHEST WITH CONTRAST IMPRESSION: 1. Right basilar opacity with small right-sided pleural fluid collection compatible with pneumonia, aspiration or compressive atelectasis. Please correlate with clinical and laboratory data. 2. Right pleural calcification stable compared to 06/06/2015. 3. Atherosclerosis including the coronary vascular. 4. Ascites. 5. Liver has slightly nodular margins suspicious for hepatic cirrhosis. Please correlate to clinical and laboratory data. Dictated by: Zuleyma Gorman MD, PhD on 09/15/2016 at 15:12 Additional Diagnostics [facility] DateTimeAnalyzed 13:11:00 -_ pH ____7.297 - 7.350 7.450 pCO2 ___64.6__ -mmHg 35.0 45.0 pO2 ___59.7__ -mmHg 69.0 116 HCO3- ___30.6__ -mmol/L 22.0 26.0 Assessment & Plan Saleem Salinas is a 76 male with Chronic back pain, COPD/asthma, associated with secondary chronic polycythemia presents to ED with secondary to 2 weeks of increasing somnolence and generalized weakness and lethargy. 1. Acute Hypercapnic Hypoxic Respiratory failure secondary to COPD exacerbation. Present on admission, active. - Patient likely had a pulmonary infection that triggered his COPD exacerbation. -Ceftriaxone IV switched to Azithromycin. - sputum and blood cultures negative. - Viral PCR negative. - Legionella and strep pneumo negative. - Systemic steroids Solu-Medrol 125 mcg IV - DuoNeb treatments scheduled - Pulmonology consult, time and recommendations greatly appreciated. - Continue BIPAP during day PRN. If patient becomes confused BIPAP should be used. - BIPAP should be worn during the night. - Bronchodilators Q2-3hours during the day. - Bronchodilators Q1 hour PRN during the night. - At some point patient will need spirometry. - ABG per above. 2. Acute Encephalopathy. Present on admission, Improved. - Likely related to his respiratory failure and infection. CT head negative for bleeding - Neurologic status improved greatly today. - avoid benzodiazepines, high risk for delirium 3. Polycythemia, present on admission, active. - RBC 6.2 ,Hgb 16.1 4. Hypertension, present on admission, active. - Presumed stable and currently at good levels - Continue Amlodipine 5 mg daily 5. Dyslipidemia - continue Lovastatin 20 mg daily - Acetaminophen as needed for mild pain/fever/headache - Bowel regimen as needed - Antiemetic as needed Disposition: Anticipate discharge in 48-72 hours, pending further evaluation of outpatient oxygen requirement and therapy for COPD. . Pain Evaluation: Adequate Pain Control Resuscitation Status: CPR: Attempt Resuscitation Attending Statement The patient was seen and examined together with Dr. Westbrook on 09/16/2016 and I agree with the history, exam and plan as outlined in the note above. . JESSI WESTBROOK DO Sep 16, 2016 19:21 Mario Herrera MD Sep 17, 2016 14:31
[2016-09-17] VITALS (17 sets, daily range): BP systolic 119–140; BP diastolic 65–85; PULSE 62–90; RESP 16–24; O2SAT 88–98
[2016-09-17] MEDS: Lactated Ringer's 1,000 ML IV SCH ×2 (01:20→20:31)
[2016-09-17] MEDS: MethylprednisoLONE Sodium Succinate 40 mg/mL Inj IVPUSH SCH ×3 (01:28→16:22)
[2016-09-17] MEDS: Albuterol-Ipratropium 3 mL Inhalation Solution NEB SCH ×6 (02:28→19:50)
[2016-09-17 03:31] LABS: BASOPHILS % (AUTO) 0 % (0-3); EOSINOPHILS % (AUTO) 0 % (0-5); MONOCYTES % (AUTO) 4.8 % (4-12); Mean Corpuscular Hemoglobin 25.8 pg (27.0-35.0); Mean Corpuscular Volume 84.2 fL (81-100); Platelet Count 163 bil/L (150-400)
--- NOTE | 2016-09-17 06:01 | NUR ---
A&o/BiPap/PTT hep/Pulses A&O x3 most waking time, Ptt heparin 61.0/47.8, Heparin Gtt running @ 1050,. LR @ 50, 1 Peripheral IV , Pedal Pulses on rt with Doppler left pedal pulses ascent , posterior tibial pulses faint w doppler, Has diminished feeling in both feet, Abdomen slight tightness, no pain , edema bilaterally lower extremety and upper extremity . No C/O pain , On BiPap until 0500, then on NC @ 4 L O2 , satting @ high 80s' agreed to try Oxy Mask, for a while. Tele A-Flutter 70's 1 degree block
[2016-09-17] MEDS: Erythromycin 0.5% 3.5 Gm Ophthalmic Ointment BOTH_EYES SCH ×3 (08:28→21:28)
--- NOTE | 2016-09-17 12:15 | NUR ---
Oxygen Sats: Keep pt's oxygen sat's between 88-92 per pulmonology
--- NOTE | 2016-09-17 13:22 | DRSVH ---
PROCEDURE: US ABDOMEN INDICATIONS: assess ascites for tap and live for cirrhosis TECHNIQUE: Real-time scanning was performed of the abdominal and retroperitoneal organs, with image documentatio n. COMPARISON: [facility], CT, CT CHEST W CON, 09/15/2016, 14:45. FINDINGS: Liver length: 14.34 cm Gallbladder Wall Thickness: 3.10 mm CHD: 1.70 mm CBD: 4.30 mm Spleen length: 11.23 cm Right kidney length: 9.49 cm Left kidney length: 10.94 cm Aorta(Proximal): 2.42 cm Aorta(Mid): 1.95 cm Liver: Liver is mildly increased in echogenicity and there is mild hepatic capsular nodularity sugges ting cirrhosis. Gallbladder: Normal gallbladder. Biliary ducts: Intrahepatic bile ducts are non-dilated. Extrahepatic bile duct caliber is normal. Normal is 6-7 mm or less in diameter, or 10 mm or less post-cholecystectomy. Pancreas: Visualized portions of the pancreas are sonographically normal. Spleen: Spleen is normal in size and homogeneous in echotexture. Kidneys: Kidneys are normal in size and echotexture. No hydronephrosis or nephrolithiasis. No bobbi d masses. Right kidney cyst measuring roughly 20 mm. Aorta: Visualized aorta is normal in caliber at less than 3 cm. Iliacs: Proximal common iliac arteries are normal in caliber at less than 2.5 cm. IVC: Intrahepatic inferior vena cava is patent. Miscellaneous: Minimal amount of perihepatic and perisplenic fluid. Right pleural effusion is presen t. IMPRESSION: 1. Mild increase in hepatic parenchymal echogenicity with scalloped hepatic capsule suggestive of cir rhosis. No discrete focal hepatic abnormality seen. 2. Minimal perihepatic and perisplenic ascites present with volume not sufficient for safe paracentes is. 3. Right renal superior lateral cyst. Dictated by: Hermilo SANTACRUZ Interpreted: Aba Silverman MD on 09/17/2016 at 13:21 Transcribed by: WILMER on 09/17/2016 at 13:21 Approved by: Aba Silverman M.D. on 09/17/2016 at 16:59
--- NOTE | 2016-09-17 14:02 | DRSVH ---
[facility] [address] [place] [address] Echocardiogram Report Name: ANABELA FLOWERS te: 09/17/2016 Height: 6 9 in Hospital Exam Location: [facility] Weight: 2 10 lb Gender: Male BSA: 2.1 m2 : 1940 Age: 76 yrs BP: 135/7 3 mmHg Reason For Study: Aortic valve stenosis Ordering Physician: HOSPITALIST [facility] Performed By: Yomaira Perry Referring Physician: Dr. Eugenio Yo Interpretation Summary 1) Borderline concentric left ventricular hypertrophy with normal size and function (EF 60-65%). 2) Moderately dilated right ventricle with mildly to moderately reduced systolic function. 3) Septal flattening in systole suggestive of right ventricular pressure overload. 4) Severe biatrial enlargement. 5) Calcific aortic valve with moderate aortic stenosis. 6) Calcific mitral valve with no significant stenosis or regurgitation. 7) Pulmonary hypertension present, estimated systolic pulmonary pressures of 53mmHg. 8) Bilateral pleural effusions present. 9) Compared to the Echo done 12/24/2015, pulmonary pressures are higher and right ventricular dysfunction is present on today's study. Procedure: A two-dimensional transthoracic echocardiogram with color flow and Doppler was performed. The study quality was technically adequate. Comparison is made with the echocardiogram of 12-24-15. The patient was in atrial fibrillation with heart rates between 73-95 bpm during the exam. Left Ventricle: The left ventricle is normal in size. There is borderline concentric left ventricular hypertrophy. The ejection fraction is estimated to be 60-65%. Left ventricular systolic function is normal. Flattened septum is consistent with RV pressure overload. Diastolic function could not be accurately assessed due to atrial fibrillation. Right Ventricle: The right ventricle is moderately dilated. Right ventricular systolic function is mild to moderately reduced. Atria: The left atrium is severely dilated. The right atrium is severely dilated. The interatrial septum is intact with no evidence for an atrial septal defect. Mitral Valve: The mitral valve leaflets appear mildly thickened, but open well. There is mild calcification extending into the subvalvular apparatus. There is moderate to severe mitral annular calcification. There is trace mitral regurgitation. Aortic Valve: The calculated aortic valve area is 1.0 cm2. The aortic valve area is 1.2 centimeters squared by planimetry. The peak aortic velocity is 315 cm/sec. The peak aortic velocity on the previous exam was 340 cm/sec. The aortic valve mean gradient is 25 mmHg. Severity ratio is 0.27. The aortic valve area indexed to the BSA is 0.47 . There is moderate aortic stenosis. No aortic regurgitation is present. Tricuspid Valve: The tricuspid valve leaflets are thin and pliable. There is severe tricuspid regurgitation. The right ventricular systolic pressure is estimated at 53 mmHg assuming a right atrial pressure of 8 mm Hg. Pulmonic Valve: The pulmonic valve is not well visualized. There is trace pulmonic regurgitation. Great Vessels: The aortic root is normal size. The dimensions of the ascending aorta are normal. The IVC is of normal diameter and collapses less than 50% with a sniff. This suggests a right atrial pressure of 8 mm Hg. Pericardium/ Pleura There is no pericardial effusion. There is a small right-sided pleural effusion. There is a moderate left-sided pleural effusion. MMode/2D Measurements & Calculations LVIDd: 4.9 cm RA long axis: 6.8 cm LVOT diam LVIDs: 2.6 cmLA A2 area: 31.4 cm FS: 45.6 % LA A4 area: 31.0 cm RA area: 30.8 cm AoV Opening EPSS: 0.75 cmLA length (vol): 6.1 cm RA vol: 118.5 ml IVSd: 1.0 cm LA vol: 134.6 ml RA : 56.2 ml/m Ao root diam LVPWd RVDd major: 7.8 cm : 0.9cm LA vol index: 63.8 ml/m RVDd minor: 4.8 cm Aortic Jxn IVC diam: 2.3 cm asc Aorta Diam LIZBETH (plan) LV contreras. diameter/BSA LV sys. diameter/BSA (cm/m^2): 2.3 (cm/m^2): 1.3 : 1.2 cm2 Doppler Measurements & Calculations Ao V2 max MV E max rafael MV E/A: 0.87 TR max rafael : 315.7 cm/sec : 148.4 cm/sec : 336.0 cm/sec Ao max PG MV A max rafael TR max PG : 39.9 mmHg : 171.0 cm/sec : 45.2 mmHg Ao mean PG MV P1/2t: 57.4 msec PA V2 max : 24.7 mmHg : 76.3 cm/sec LVOT Max Rafael PA mean PG : 76.9 cm/sec : 0.84 mmHg LIZBETH(I,D): 0.99 cm PA Accel Time sev ratio : 0.13 sec MV dec time MV P1/2t max rafael Ao V2 mean LV V1 max PG : 0.20 sec : 238.8 cm/sec MVA(P1/2t): 3.8 cm2 Ao V2 VTI LV V1 VTI : 19.0 cm LIZBETH(V,D) : 0.90 2m PA V2 mean LIZBETH indexed to BSA : 38.8 cm/sec (cm^2/m^2): 0.47 Reading Physician:02:00 PM
[2016-09-17] MEDS: Heparin 25K Unit/500mL 0.45 NS 25,000 UNIT in IV Premix 1 EACH IV SCH (15:05)
--- NOTE | 2016-09-17 16:12 | PCM.PNMED ---
Subjective Date of Service Sep 17, 2016 Subjective ICU/Pulmonology progress note: This is a 76 year old male with history significant for COPD who presented to [facility] with generalized weakness and somnolence progressively worsening over several weeks. The patient was confused on 09/16/2016. When we arrived at the consult the patients oxygen had just been decreased and he was alert and speaking (with difficulty due to bipap mast). Today the patient states he is doing well. On entering the room he was sitting up in a chair and on 4 liters of oxygen satting at 90%. He states he is still short of breath but with oxygen he feels well. He denies any chest pain or pressure, nausea, vomiting, diarrhea. ROS not able to be obtained as patient will not answer questions with bipap mask on. Exam Vital Signs Vital Sign - Last Date Time Temp Pulse Resp B/P Pulse Ox O2 Delivery O2 Flow Rate FiO2 09/17/16 12:09 36.4 89 16 120/70 92 Nasal Cannula 4.00 09/17/16 03:31 40 Intake and Output 09/16/16 09/16/16 09/17/16 Cumulative From/Thru 15:00 23:00 07:00 09/15/16 11:56 - 09/17/16 05:38 Intake Total 2008 ml 1549 ml 4107 ml Output Total 300 ml 300 ml 1450 ml Balance 1708 ml 1249 ml 2657 ml Intake Oral 1200 ml 350 ml 1550 ml IV Total 808 ml 1199 ml 2557 ml Output Urine Total 300 ml 300 ml 1450 ml # Voids 1 # Bowel Movements 1 2 Exam General: Alert Head: Normal Eyes: Scleral Anicteric Chest & Lungs: Coarse breath sounds (although improved) Cardiovascular: Irregularly irregular., Normal S1, Normal S2, No Murmurs/Rubs/ Gallops Musculoskeletal: Unremarkable Extremities: Other (Trace edema bilaterally) Neurological: Grossly Neurologically Intact IVs and Medications Medications Reviewed: Medications were reviewed in detail Lab and Diagnostics Result Diagram: 09/17/1624409/17/16244 X-Rays, CTs and MRIs X-RAY CHEST ONE VIEW, PORTABLE IMPRESSION: Small right pleural effusion and basilar opacity consistent with compressive atelectasis, pneumonia or neoplasm. Continued radiographic surveillance to resolution is recommended. Dictated by: Hermilo SANTACRUZ Interpreted: Aba Silverman MD on 09/15/2016 at 13:07 CT BRAIN WITHOUT CONTRAST IMPRESSION: No acute intracranial abnormality. Dictated by: Minnie Nguyễn M.D. on 09/15/2016 at 13:00 CT CHEST WITH CONTRAST IMPRESSION: 1. Right basilar opacity with small right-sided pleural fluid collection compatible with pneumonia, aspiration or compressive atelectasis. Please correlate with clinical and laboratory data. 2. Right pleural calcification stable compared to 06/06/2015. 3. Atherosclerosis including the coronary vascular. 4. Ascites. 5. Liver has slightly nodular margins suspicious for hepatic cirrhosis. Please correlate to clinical and laboratory data. Dictated by: Zuleyma Gorman MD, PhD on 09/15/2016 at 15:12 Additional Diagnostics [facility] DateTimeAnalyzed 13:11:00 -_ pH ____7.297 - 7.350 7.450 pCO2 ___64.6__ -mmHg 35.0 45.0 pO2 ___59.7__ -mmHg 69.0 116 HCO3- ___30.6__ -mmol/L 22.0 26.0 Assessment & Plan This is a 76 year old male with COPD who presents with several weeks of generalized weakness and somnolence. Acute hypercapnic, hypoxic respiratory failure: -Patient likely requires O2 sat level at around 88%. He is doing well today in 4 liters of oxygen today. -Continue BIPAP during day PRN. If patient becomes confused BIPAP should be used. -BIPAP should be worn during the night. -Bronchodilators Q2-3hours during the day while in hospital. -Bronchodilators Q1 hour PRN during the night while in hospital. -PCR viral panel ordered. -At some point patient will need spirometry. As patient's respiratory status is stable the pulmonology team is signing off. VTE Mechanical Devices: Intermittant Pneumatic CD Resuscitation Status: CPR: Attempt Resuscitation Attending Statement The patient was seen and examined together with Dr. Yap on 09/17/2017 and I agree with the history, exam and plan as outlined in the note above. Dm Yap DO Sep 17, 2016 12:23 Sam Bethea MD Oct 14, 2016 10:47
--- NOTE | 2016-09-17 17:25 | NUR ---
Social Work: Initial Assessment D: Per EMR review, pt viviane 76 year old male admitted for Acute Respiratory Failure. Pt is [facility] Medicare with no LTC insurance or VA benefits. PCP is Eugenio Yo MD. NOK is Mary Salinas, , . Advanced directives not on chart, ARCHITECTURAL MODEL MAKER requested them from pt's . Readmit score is moderate, 5/8. ARCHITECTURAL MODEL MAKER met with pt at bedside. Sw role explained. See initial assessment. Pt lives on [address] with his . Pt states he is I at baseline, uses no DME and continues to drive. Pt denies any HH history or skilled rehab placements. Pt has been 1-2 person assist during admission with periods of somnolence. Pt was sitting at EOB. PT is following pt and will attempt to see him tomorrow to complete assessment and make recommendations. A: Pt who is I at baseline. P: ARCHITECTURAL MODEL MAKER to continue to follow and will follow up with PT recommendations for pt and develop safe dcp; SUSANNA Hernandez Addendum: 09/17/16 at 1730 by GILMER MOHR Amended: Links added.
--- NOTE | 2016-09-17 17:47 | NUR ---
Oxygen Sats Pt. was on 2-3L NC to try and wean him off but the highest Spo2 reading was 88%. Pt. is back on 4L NC Spo2 92% at this time. Pt. is able to stand with 1 persona assist but Pt. is weak on his feet.
--- NOTE | 2016-09-17 21:32 | PCM.PNMED ---
Subjective Date of Service Sep 17, 2016 Subjective Saleem Salinas is a 76 male with Chronic back pain, COPD/asthma, associated with secondary chronic polycythemia presents to ED with secondary to 2 weeks of increasing somnolence and generalized weakness and lethargy. per patient's , patient had a ground-level fall on August 28 striking head. He did not seek medical attention after fall. Over the last 2 weeks since states he has come increasingly sleepy and tired with a decrease in appetite. Some reported dry cough but unclear if patient had fever or chills. No sick contacts at the home. Overnight Events. No acute events overnights. Mr. Saleem Salinas this morning was much more alert than previously. He reports painting a stove in his garage with the door shut using high temp stove paint 2.5 weeks prior to this acute onset of dyspnea. He was conversational in bed and tolerating 4L O2. Exam Vital Signs Vital Sign - Last Date Time Temp Pulse Resp B/P Pulse Ox O2 Delivery O2 Flow Rate FiO2 09/17/16 17:36 Supplement Oxygen 09/17/16 16:30 36.4 90 18 134/81 92 4.00 09/17/16 03:31 40 Intake and Output 09/16/16 09/16/16 09/17/16 Cumulative From/Thru 15:00 23:00 07:00 09/15/16 11:56 - 09/17/16 05:38 Intake Total 2008 ml 1549 ml 4107 ml Output Total 300 ml 300 ml 1450 ml Balance 1708 ml 1249 ml 2657 ml Intake Oral 1200 ml 350 ml 1550 ml IV Total 808 ml 1199 ml 2557 ml Output Urine Total 300 ml 300 ml 1450 ml # Voids 1 # Bowel Movements 1 2 Exam General: No acute distress, well-developed, well-nourished, appropriately interactive HEENT: Normocephalic, atraumatic. External ears without defect. Pupils equal, round, and reactive to light and accommodation. Anicteric sclerae, moist conjunctivae, and no lid lag. Oropharynx free of erythema and cobble stoning with moist mucosa. Neck: Supple with full range of motion. No jugular venous distension. No bruits. No lymphadenopathy or thyromegaly. Cardiovascular: Regular rate and rhythm with no murmurs, rubs, or gallops appreciated Pulmonary: Clear to auscultation bilaterally with no crackles, wheezes, or rhonchi. Normal respiratory effort with no use of accessory muscles. Abdomen: Bowel tones present. Soft, nontender, nondistended. No hepatosplenomegaly or masses appreciated. Extremities: No clubbing, cyanosis, edema, or lymphadenopathy appreciated. Skin: Normal temperature, turgor, and texture; no rash, ulcers, or subcutaneous nodules appreciated. Neurological: Cranial nerves grossly intact. Normal muscle strength, tone, and bulk. Reflexes, coordination, and sensory function within normal limits. No known gait impairment. Psychiatric: Alert and oriented x3. IVs and Medications Medications Reviewed: Medications were reviewed in detail Lab and Diagnostics Result Diagram: 09/17/1624409/17/16244 X-Rays, CTs and MRIs X-RAY CHEST ONE VIEW, PORTABLE IMPRESSION: Small right pleural effusion and basilar opacity consistent with compressive atelectasis, pneumonia or neoplasm. Continued radiographic surveillance to resolution is recommended. Dictated by: Hermilo Turner RR Interpreted: Aba Silverman MD on 09/15/2016 at 13:07 CT BRAIN WITHOUT CONTRAST IMPRESSION: No acute intracranial abnormality. Dictated by: Minnie Nguyễn M.D. on 09/15/2016 at 13:00 CT CHEST WITH CONTRAST IMPRESSION: 1. Right basilar opacity with small right-sided pleural fluid collection compatible with pneumonia, aspiration or compressive atelectasis. Please correlate with clinical and laboratory data. 2. Right pleural calcification stable compared to 06/06/2015. 3. Atherosclerosis including the coronary vascular. 4. Ascites. 5. Liver has slightly nodular margins suspicious for hepatic cirrhosis. Please correlate to clinical and laboratory data. Dictated by: Zuleyma Gorman MD, PhD on 09/15/2016 at 15:12 Cardiac Echo Impressions Echocardiogram Report Interpretation Summary 1) Borderline concentric left ventricular hypertrophy with normal size and function (EF 60-65%). 2) Moderately dilated right ventricle with mildly to moderately reduced systolic function. 3) Septal flattening in systole suggestive of right ventricular pressure overload. 4) Severe biatrial enlargement. 5) Calcific aortic valve with moderate aortic stenosis. 6) Calcific mitral valve with no significant stenosis or regurgitation. 7) Pulmonary hypertension present, estimated systolic pulmonary pressures of 53mmHg. 8) Bilateral pleural effusions present. 9) Compared to the Echo done 12/24/2015, pulmonary pressures are higher and right ventricular dysfunction is present on today's study. Additional Diagnostics US ABDOMEN IMPRESSION: 1. Mild increase in hepatic parenchymal echogenicity with scalloped hepatic capsule suggestive of cirrhosis. No discrete focal hepatic abnormality seen. 2. Minimal perihepatic and perisplenic ascites present with volume not sufficient for safe paracentesis. 3. Right renal superior lateral cyst. Dictated by: Hermilo Turner [facility] Interpreted: Aba Silverman MD on 09/17/2016 at 13:21 [facility] AB DateTimeAnalyzed 13:11:00 -_ pH ____7.297 - 7.350 7.450 pCO2 ___64.6__ -mmHg 35.0 45.0 pO2 ___59.7__ -mmHg 69.0 116 HCO3- ___30.6__ -mmol/L 22.0 26.0 Assessment & Plan Saleem Salinas is a 76 male with Chronic back pain, COPD/asthma, associated with secondary chronic polycythemia presents to ED with secondary to 2 weeks of increasing somnolence and generalized weakness and lethargy. 1. Acute Hypercapnic Hypoxic Respiratory failure secondary to COPD exacerbation. Present on admission, Controlled. - Patient likely had a pulmonary infection that triggered his COPD exacerbation. -Ceftriaxone IV switched to Azithromycin. - sputum and blood cultures negative. Viral PCR negative. Legionella and strep pneumo negative. - Systemic steroids Solu-Medrol 60mcg Q8 IV - DuoNeb treatments scheduled. - Pulmonology consult, time and recommendations greatly appreciated. - Continue BIPAP during day PRN. If patient becomes confused BIPAP should be used. - BIPAP should be worn during the night. - Bronchodilators Q2-3hours during the day. - Bronchodilators Q1 hour PRN during the night. - At some point patient will need spirometry. - ABG per above. 2. Acute Encephalopathy. Present on admission,Resolved. - Likely related to his respiratory failure and infection. CT head negative for bleeding. - Neurologic status improved greatly today. - Avoid benzodiazepines, high risk for delirium 3. Polycythemia, present on admission, active. - RBC 6.09 ,Hgb 15.7 4. Hypertension, present on admission, active. - Presumed stable and currently at good levels - Continue Amlodipine 5 mg daily - Torsemide 20 PO daily. - ECHO per above. 5. Dyslipidemia - Continue Lovastatin 20 mg daily 6. Atrial flutter with variable block, present on admission, active. - Heparin ggt d/c'd. - Continue home ASA. Statin, 7. Leukopenia, present on admission, active. - WBC 6.5 on admission, dropped to 1.7, currently 3.5. 8. Ascites, present on admission, Active. - CT chest per above. - US per above. - Acetaminophen as needed for mild pain/fever/headache - Bowel regimen as needed - Antiemetic as needed Disposition: Anticipate discharge in 48-72 hours, pending further evaluation of outpatient oxygen requirement and therapy for COPD. Pain Evaluation: Adequate Pain Control VTE Mechanical Devices: Intermittant Pneumatic CD Resuscitation Status: CPR: Attempt Resuscitation Attending Statement The patient was seen and examined together with Dr. Westbrook on 09/17/2017 and I agree with the history, exam and plan as outlined in the note above. . JESSI WESTBROOK DO Sep 17, 2016 18:47 Mario Herrera MD Oct 01, 2016 17:34
[2016-09-18] VITALS (16 sets, daily range): BP systolic 129–168; BP diastolic 74–98; PULSE 56–94; RESP 16–30; O2SAT 82–98
[2016-09-18] MEDS: MethylprednisoLONE Sodium Succinate 40 mg/mL Inj IVPUSH SCH ×2 (00:26→08:14)
[2016-09-18] MEDS: Albuterol-Ipratropium 3 mL Inhalation Solution NEB SCH ×6 (00:49→21:29)
--- NOTE | 2016-09-18 02:42 | NUR ---
O2/A&O/Spirits On 4 L O2 per NXC, Sat low 90's , somewhat noncompliant w sensor , active in bed , pulls sensor of ear. A&O x3 using call light appropriately, In good spirits, peripheral edema, Lung sounds distant,, SOB on exertion LR @ 50, Tele : SR 1st degree, 90.
[2016-09-18 06:24] LABS: Mean Corpuscular Hemoglobin 25.6 pg (27.0-35.0); Mean Corpuscular Volume 84.6 fL (81-100)
[2016-09-18 06:25] LABS: BASOPHILS % (AUTO) 0 % (0-3); EOSINOPHILS % (AUTO) 0 % (0-5); MONOCYTES % (AUTO) 3.5 % (4-12); NEUTROPHILS % (AUTO) 92.7 % (40-74); Platelet Count 131 bil/L (150-400)
[2016-09-18] MEDS: Erythromycin 0.5% 3.5 Gm Ophthalmic Ointment BOTH_EYES SCH ×3 (08:15→20:25)
--- NOTE | 2016-09-18 12:01 | NUR ---
Social Work: Continued Discharge Planning D: Pt discussed with . Pt is not medically stable for discharge at this time. Pt worked with PT and will likely require SNF at time of discharge. Pt requiring additional oxygen (6L) during ambulation. Pt to also require a Trilogy at discharge. RT is coordinating this and will be using [facility] as pt is a [employer] patient. PATIENT SERVICE REPRESENTATIVE met with pt at bedside to discuss recommendations for SNF. Pt is agreeable to this based on his sharp decrease in mobility. Pt provided with SNF Choice List. contracts reviewed with pt. He would like a referral sent to [facility]. Pt does not want to go to [facility] or [facility]. t/c to [facility] [place] to provide referral and inquire if they have Trilogy Contract through [employer]. Yennifer at [facility] believes that they do and that she will confirm this prior to discharge. Access provided. PPW and PASSR Completed A: Pt who will require SNF at time of discharge due to decrease in mobility, strength and ambulation. P: Anticipate pt to discharge to SNF ([facility] Reviewing) with Trilogy via cabulance. PATIENT SERVICE REPRESENTATIVE to continue to follow and assist with safe dcp. SUSANNA Hernandez Addendum: 09/18/16 at 1211 by GILMER [place] SS Pt will require Authorization prior to d/c
--- NOTE | 2016-09-18 12:30 | NUR ---
[facility] Signed
--- NOTE | 2016-09-18 16:35 | NUR ---
POC/home O2 The pt is a hopeful DC to a SNF tomorrow on O2 and a trilogy. The trilogy cognos consultant met with the pt today at 1600, and fitted the pt with a mask and answered all questions. The pt still requires 4L NC to keep sats in the low 90's.
--- NOTE | 2016-09-18 17:12 | PCM.PNMED ---
Subjective Date of Service Sep 18, 2016 Nesha Salinas is a 76 male with Chronic back pain, COPD/asthma, associated with secondary chronic polycythemia presents to ED with secondary to 2 weeks of increasing somnolence and generalized weakness and lethargy. per patient's , patient had a ground-level fall on August 28 striking head. He did not seek medical attention after fall. Over the last 2 weeks since states he has come increasingly sleepy and tired with a decrease in appetite. Some reported dry cough but unclear if patient had fever or chills. No sick contacts at the home. Overnight Events. No acute events overnights. Mr. Saleem Salinas this morning was much more alert than previously. He reports painting a stove in his garage with the door shut using high temp stove paint 2.5 weeks prior to this acute onset of dyspnea. He was conversational in bed and tolerating 4L O2. He was resting sitting up in bed comfortably and in no acute distress. The patient reports that he feels better than the day prior. The patient denies headache, dizziness, sore throat, cough, chest pain, shortness of breath, abdominal pain, nausea, vomiting, constipation, and diarrhea. The patient is voiding and eliminating without difficulty. The patient is not ambulating very effectively due to greatly increased O2 demand. Exam Vital Signs Vital Sign - Last Date Time Temp Pulse Resp B/P Pulse Ox O2 Delivery O2 Flow Rate FiO2 09/18/16 12: 36.7 87 22 129/74 92 Nasal Cannula 4.00 09/17/16 03:31 40 Intake and Output 09/17/16 09/17/16 09/18/16 Cumulative From/Thru 15:00 23:00 07:00 09/15/16 11:56 - 09/18/16 05:26 Intake Total 1674 ml 1039 ml 6820 ml Output Total 550 ml 900 ml 2900 ml Balance 1124 ml 139 ml 3920 ml Intake Oral 800 ml 530 ml 2880 ml IV Total 874 ml 509 ml 3940 ml Output Urine Total 550 ml 900 ml 2900 ml # Voids 1 # Bowel Movements 1 3 Exam General: No acute distress, well-developed, well-nourished, appropriately interactive HEENT: Normocephalic, atraumatic. External ears without defect. Pupils equal, round, and reactive to light and accommodation. Anicteric sclerae, moist conjunctivae, and no lid lag. Oropharynx free of erythema and cobble stoning with moist mucosa. Neck: Supple with full range of motion. No jugular venous distension. No bruits. No lymphadenopathy or thyromegaly. Cardiovascular: Regular rate and rhythm with no murmurs, rubs, or gallops appreciated Pulmonary: Clear to auscultation bilaterally with no crackles, wheezes, or rhonchi. Respiratory effort increased with no use of accessory muscles. Abdomen: Bowel tones present. Soft, nontender, nondistended. No hepatosplenomegaly or masses appreciated. Extremities: No clubbing, cyanosis, edema, or lymphadenopathy appreciated. Skin: Normal temperature, turgor, very dry distal upper extremities; no rash, ulcers, or subcutaneous nodules appreciated. Neurological: Cranial nerves grossly intact. Normal muscle strength, tone, and bulk. Reflexes, coordination, and sensory function within normal limits. No known gait impairment. Psychiatric: Normal mood and affect. Alert and oriented to person, place, and time. IVs and Medications Medications Reviewed: Medications were reviewed in detail Lab and Diagnostics Result Diagram: 09/18/16 0450 09/18/16 045 X-Rays, CTs and MRIs X-RAY CHEST ONE VIEW, PORTABLE IMPRESSION: Small right pleural effusion and basilar opacity consistent with compressive atelectasis, pneumonia or neoplasm. Continued radiographic surveillance to resolution is recommended. Dictated by: Hermilo Turner [facility] Interpreted: Aba Silverman MD on 09/15/2016 at 13:07 CT BRAIN WITHOUT CONTRAST IMPRESSION: No acute intracranial abnormality. Dictated by: Minnie Nguyễn M.D. on 09/15/2016 at 13:00 CT CHEST WITH CONTRAST IMPRESSION: 1. Right basilar opacity with small right-sided pleural fluid collection compatible with pneumonia, aspiration or compressive atelectasis. Please correlate with clinical and laboratory data. 2. Right pleural calcification stable compared to 06/06/2015. 3. Atherosclerosis including the coronary vascular. 4. Ascites. 5. Liver has slightly nodular margins suspicious for hepatic cirrhosis. Please correlate to clinical and laboratory data. Dictated by: Zuleyma Gorman MD, PhD on 09/15/2016 at 15:12 Cardiac Echo Impressions Echocardiogram Report Interpretation Summary 1) Borderline concentric left ventricular hypertrophy with normal size and function (EF 60-65%). 2) Moderately dilated right ventricle with mildly to moderately reduced systolic function. 3) Septal flattening in systole suggestive of right ventricular pressure overload. 4) Severe biatrial enlargement. 5) Calcific aortic valve with moderate aortic stenosis. 6) Calcific mitral valve with no significant stenosis or regurgitation. 7) Pulmonary hypertension present, estimated systolic pulmonary pressures of 53mmHg. 8) Bilateral pleural effusions present. 9) Compared to the Echo done 12/24/2015, pulmonary pressures are higher and right ventricular dysfunction is present on today's study. Additional Diagnostics US ABDOMEN IMPRESSION: 1. Mild increase in hepatic parenchymal echogenicity with scalloped hepatic capsule suggestive of cirrhosis. No discrete focal hepatic abnormality seen. 2. Minimal perihepatic and perisplenic ascites present with volume not sufficient for safe paracentesis. 3. Right renal superior lateral cyst. Dictated by: Hermilo GREGORIOA Interpreted: Aba Silverman MD on 09/17/2016 at 13:21 [facility] DateTimeAnalyzed 13:11:00 -_ pH ____7.297 - 7.350 7.450 pCO2 ___64.6__ -mmHg 35.0 45.0 pO2 ___59.7__ -mmHg 69.0 116 HCO3- ___30.6__ -mmol/L 22.0 26.0 Assessment & Plan Saleem Salinas is a 76 male with Chronic back pain, COPD/asthma, associated with secondary chronic polycythemia presents to ED with secondary to 2 weeks of increasing somnolence and generalized weakness and lethargy. 1. Acute Hypercapnic Hypoxic Respiratory failure secondary to COPD exacerbation. Present on admission, Controlled. - Patient likely had a pulmonary infection that triggered his COPD exacerbation. -Ceftriaxone IV switched to Azithromycin. - sputum and blood cultures negative. Viral PCR negative. Legionella and strep pneumo negative. - Solu-Medrol 60mcg Q8 IV will begin tapering by switching to prednisone with Solu-Medrol equivalence of 60 mg BID for 3 days, then 60 mg Daily for 3 days and so on... for a total of 14 day taper. - Pulmonology consult, time and recommendations greatly appreciated. - Continue BIPAP during day PRN and worn every night. If patient becomes confused BIPAP should be used. - Bronchodilators Q2-3hours during the day. Bronchodilators Q1 hour PRN during the night. - DuoNeb treatments scheduled. - At some point patient will need spirometry. - ABG per above. - Trilogy to assess patient today. - Will be d/c to SNF due to inability to ambulate without O2 desaturating. 2. Acute Encephalopathy. Present on admission,Resolved. - Likely related to his respiratory failure and infection. CT head negative for bleeding. - Neurologic status improved greatly today. - Avoid benzodiazepines, high risk for delirium 3. Polycythemia, present on admission, active. - RBC 6.09 ,Hgb 15.7 4. Hypertension, present on admission, active. - Presumed stable and currently at good levels - Continue Amlodipine 5 mg daily - Torsemide 20 PO daily. - ECHO per above. 5. Dyslipidemia - Continue Lovastatin 20 mg daily 6. Atrial flutter with variable block, present on admission, active. - Heparin ggt d/c'd. - Continue home ASA. Statin, 7. Leukopenia, present on admission, active. - WBC 6.5 on admission, dropped to 1.7, currently 3.5. 8. Ascites, present on admission, Active. - CT chest per above. - US per above. - Acetaminophen as needed for mild pain/fever/headache - Bowel regimen as needed - Antiemetic as needed Disposition: Anticipate discharge in 48-72 hours, pending further evaluation of outpatient oxygen requirement and therapy for COPD. Pain Evaluation: Adequate Pain Control VTE Mechanical Devices: Intermittant Pneumatic CD Resuscitation Status: CPR: Attempt Resuscitation Attending Statement The patient was seen and examined together with Dr. Westbrook on 09/18/2017 and I agree with the history, exam and plan as outlined in the note above. . JESSI WESTBROOK DO Sep 18, 2016 17:12 Mario Herrera MD Oct 01, 2016 17:35
[2016-09-18] MEDS ORDERED: MethylprednisoLONE Sodium Succinate 62.5 mg/mL 2 mL Inj IVPUSH SCH (20:30)
[2016-09-18] MEDS ORDERED: predniSONE 20 mg Tablet PO ONE (20:55)
[2016-09-19] VITALS (14 sets, daily range): BP systolic 141–161; BP diastolic 73–82; PULSE 75–98; RESP 16–24; O2SAT 89–97
[2016-09-19] MEDS: Albuterol-Ipratropium 3 mL Inhalation Solution NEB SCH ×6 (00:19→20:57)
[2016-09-19 03:59] LABS: Mean Corpuscular Hemoglobin 26.2 pg (27.0-35.0); Mean Corpuscular Volume 83.9 fL (81-100)
--- NOTE | 2016-09-19 05:25 | ABG ---
DateTimeAnalyzed 05:20:00 -_ pH ____7.369 - 7.350 7.450 pCO2 ___67.3__ -mmHg 35.0 45.0 pO2 ___54.5__ -mmHg 69.0 116 HCO3- ___37.8__ -mmol/L 22.0 26.0 ABE ____9.7__ -mmol/L -2.0 2.0 tHb ___15.5__ -g/dL O2Hb ___84.8__ -% COHb ____1.3__ -% MetHb ____0.8__ -% sO2 ___86.6__ -% 25.0 FIO2 ___32.0__ -% Drawn By AF - Date/Time Notified____ 05:24:00 -_ Oxygen Device 1 ____BIPAP - Notified By af - Notified Whom ____Nurse - B 749 -mmHg tO2 ___18.4__ -Vol% OrderingPhysicianInitials mf - Mark test _Positive -
--- NOTE | 2016-09-19 05:42 | NUR ---
IV access/ Prednisone/ Mentation Per shift report no IV access available. Pt scheduled to have IV soulmedrol- made aware of pt lack of IV access. order received for 1X dose PO prednisone. IV access obtained by IV therapy. Pt aler and oriented at start of shift. overnight pt becoming slightly confused- waking up an urinating in garbage can and unsure of where he is. early this am pt noted to be difficult to arouse. ABG obtained- no significant changed noted. Dr. [facility] made aware- reviewed ABGs, aware of pt current mentation. No new orders at this time
[2016-09-19] MEDS: Erythromycin 0.5% 3.5 Gm Ophthalmic Ointment BOTH_EYES SCH ×3 (07:55→20:17)
[2016-09-19] MEDS ORDERED: predniSONE 20 mg Tablet PO SCH (08:35)
--- NOTE | 2016-09-19 15:24 | NUR ---
Social Work: Continue Discharge Planning D: GEOTHERMAL TECHNICIAN spoke with Yennifer at [facility]. She states they can accept the pt pending bed status. Per ship design teacher, pt's trilogy was delivered yesterday by [facility] and is at bedside. A: pt who will require SNF at discharge P: Anticipate pt to discharge to [facility] pending group health authorization and bed availability; GEOTHERMAL TECHNICIAN to continue to follow. SUSANNA Hernandez
--- NOTE | 2016-09-19 17:06 | NUR ---
O2/POC The pt remained on 2L NC during the shift with sats holding in the low 90's. Sats drop into the low 80's on exertion. The pt has a trilogy with 4L bleed in for bedtime. The plan of care is to DC to a SNF or rehab tomorrow.
--- NOTE | 2016-09-19 23:53 | PCM.PNMED ---
Subjective Date of Service Sep 19, 2016 Subjective Saleem Salinas is a 76-year-old male with a past medical history significant for chronic back pain, COPD with associated polycythemia secondary to chronic hypoxemia who presented to [facility] ED for 2 weeks of increasing somnolence and generalized weakness and lethargy who is now being treated for hypoxemic hypercarbic respiratory failure secondary to COPD exacerbation. Hospital day #5. Overnight: The patient was somnolent and confused, urinating in the trash can. Telemetry: Sinus rhythm, heart rate 70-90's, frequent PVC's. The patient is sitting comfortably at bedside and in no acute distress. He reports that his breathing is back to baseline. He endorses confusion last night and believes it is due to being in the hospital. The patient is voiding and eliminating without difficulty. He ambulates with a walker around the room. . Exam Vital Signs Vital Sign - Last Date Time Temp Pulse Resp B/P Pulse Ox O2 Delivery O2 Flow Rate FiO2 09/19/16 07:45 36.5 75 24 141/73 89 Nasal Cannula 2.00 09/17/16 03:31 40 Intake and Output 09/18/16 09/18/16 09/19/16 Cumulative From/Thru 15:00 23:00 07:00 09/15/16 11:56 - 09/19/16 04:20 Intake Total 520 ml 120 ml 7460 ml Output Total 1300 ml 300 ml 4500 ml Balance -780 ml -180 ml 2960 ml Intake Oral 520 ml 120 ml 3520 ml IV Total 3940 ml Output Urine Total 1300 ml 300 ml 4500 ml # Voids 2 3 # Bowel Movements 0 3 IVs and Medications Medications Reviewed: Medications were reviewed in detail Lab and Diagnostics Result Diagram: 09/19/16 0330 09/19/16 0330 X-Rays, CTs and MRIs X-RAY CHEST ONE VIEW, PORTABLE IMPRESSION: Small right pleural effusion and basilar opacity consistent with compressive atelectasis, pneumonia or neoplasm. Continued radiographic surveillance to resolution is recommended. Dictated by: Hermilo SANTACRUZ Interpreted: Aba Silverman MD on 09/15/2016 at 13:07 CT BRAIN WITHOUT CONTRAST IMPRESSION: No acute intracranial abnormality. Dictated by: Minnie Nguyễn M.D. on 09/15/2016 at 13:00 CT CHEST WITH CONTRAST IMPRESSION: 1. Right basilar opacity with small right-sided pleural fluid collection compatible with pneumonia, aspiration or compressive atelectasis. Please correlate with clinical and laboratory data. 2. Right pleural calcification stable compared to 06/06/2015. 3. Atherosclerosis including the coronary vascular. 4. Ascites. 5. Liver has slightly nodular margins suspicious for hepatic cirrhosis. Please correlate to clinical and laboratory data. Dictated by: Zuleyma Gorman MD, PhD on 09/15/2016 at 15:12 . Cardiac Echo Impressions Echocardiogram Interpretation Summary: 1) Borderline concentric left ventricular hypertrophy with normal size and function (EF 60-65%). 2) Moderately dilated right ventricle with mildly to moderately reduced systolic function. 3) Septal flattening in systole suggestive of right ventricular pressure overload. 4) Severe biatrial enlargement. 5) Calcific aortic valve with moderate aortic stenosis. 6) Calcific mitral valve with no significant stenosis or regurgitation. 7) Pulmonary hypertension present, estimated systolic pulmonary pressures of 53mmHg. 8) Bilateral pleural effusions present. 9) Compared to the Echo done 12/24/2015, pulmonary pressures are higher and right ventricular dysfunction is present on today's study. . Additional Diagnostics US ABDOMEN IMPRESSION: 1. Mild increase in hepatic parenchymal echogenicity with scalloped hepatic capsule suggestive of cirrhosis. No discrete focal hepatic abnormality seen. 2. Minimal perihepatic and perisplenic ascites present with volume not sufficient for safe paracentesis. 3. Right renal superior lateral cyst. Dictated by: Hermilo Turner RRA Interpreted: Aba Silverman MD on 09/17/2016 at 13:21 ABG DateTimeAnalyzed 13:11:00 -_ pH ____7.297 - 7.350 7.450 pCO2 ___64.6__ -mmHg 35.0 45.0 pO2 ___59.7__ -mmHg 69.0 116 HCO3- ___30.6__ -mmol/L 22.0 26.0 Assessment & Plan Saleem Salinas is a 76-year-old male with a past medical history significant for chronic back pain, COPD with associated polycythemia secondary to chronic hypoxemia who presented to [facility] ED for 2 weeks of increasing somnolence and generalized weakness and lethargy who is now being treated for hypoxemic hypercarbic respiratory failure secondary to COPD exacerbation. Hospital day #5. 1. Acute hypoxemic hypercarbic respiratory failure secondary to COPD exacerbation, present on admission. Ongoing. - Patient likely had a non-specific pulmonary infection that triggered his COPD exacerbation. - Continue BIPAP during day PRN and mandatory use at night. If patient becomes confused BIPAP should be used. - DuoNeb every 4 hours while awake. Albuterol nebs every two hours as needed for dyspnea. - At some point patient will need formal PFTs and follow up with pulmonology. - Patient has been appropriate fertility and is currently using it in the room. - Will be discharged to SNF due to inability to ambulate without O2 desaturating. - Pulmonology consulted and signed off. We appreciate their time and recommendations. 2. Acute COPD exacerbation, present on admission. Resolving. - Patient likely requires O2 sat level at around 88-92%. - Continue azithromycin 500 mg daily x 5 days. Ceftriaxone x 1 dose in ED. - Sputum and blood cultures negative. Viral PCR negative. Legionella and strep pneumo urine antigens negative. - Started steroid taper: Previously on Solu-Medrol 60mcg Q8 IV (09/15-09/18) now switched to equivalent prednisone dose of 60 mg once a day and will decrease by 10 mg daily. 3. Atrial flutter with variable block, present on admission. Active. - If patient were to have true tachybradycardia syndrome he would qualify for pacemaker placement in the future. - Heparin ggt discontinued. - Continue home ASA and statin. - Echocardiogram as above. - Cardiology consulted and signed off. We appreciate their time and recommendations. 4. Acute encephalopathy, present on admission. Resolved. - Likely related to his respiratory failure and infection. CT head negative for bleeding. - Neurologic status improved greatly today. - Avoid benzodiazepines, high risk for delirium 5. Thrombocytopenia, not present on admission. Active. - The patient's platelets drop significantly overnight. Initial platelet count 190. Platelets today 48. - Repeat platelet count with morning labs. - Ordered coags for with morning labs. - Monitor for signs of bleeding. 6. Leukopenia, present on admission. Resolved. - WBC 6.5 on admission, dropped to 1.7. - Continue to monitor daily. Chronic problems: Chronic polycythemia, likely secondary to chronic hypoxemia, present on admission. Stable. - Per Dr. Lanier the patient should be considered for phlebotomy every couple months for a hematocrit greater than 55%. - We will need to continue to have this evaluated as an outpatient. Hypertension, chronic. - Continue Amlodipine 5 mg daily - Torsemide 20 PO daily. Dyslipidemia, chronic. - Continue Lovastatin 20 mg daily. Probable liver cirrhosis with associated ascites, present on admission. Chronic - Likely secondary to long-standing remote alcohol use. - CT chest and abdominal ultrasound consistent with cirrhotic changes of the liver and a small amount of ascites, as above. - Patient will need to have this evaluated as an outpatient. - Acetaminophen as needed for mild pain/fever/headache - Bowel regimen as needed - Antiemetic as needed Disposition: Anticipate discharge in 48-72 hours, pending further evaluation of outpatient oxygen requirement and therapy for COPD. . VTE Mechanical Devices: Intermittant Pneumatic CD Resuscitation Status: CPR: Attempt Resuscitation Attending Statement The patient was seen and examined together with Dr. Carranza on 09-19-16 and I agree with the history, exam and plan as outlined in the note above. Bisi Carranza DO Sep 19, 2016 08:57 Randal Bermeo MD Sep 20, 2016 17:01
[2016-09-20] VITALS (14 sets, daily range): BP systolic 129–149; BP diastolic 74–86; PULSE 72–98; RESP 17–22; O2SAT 77–95
[2016-09-20] MEDS: Albuterol-Ipratropium 3 mL Inhalation Solution NEB SCH ×6 (00:20→21:11)
[2016-09-20 04:20] LABS: BASOPHILS % (AUTO) 0 % (0-3); EOSINOPHILS % (AUTO) 0 % (0-5); MONOCYTES % (AUTO) 9.7 % (4-12); Mean Corpuscular Hemoglobin 25.7 pg (27.0-35.0); Mean Corpuscular Volume 84.3 fL (81-100); NEUTROPHILS % (AUTO) 83.9 % (40-74); Platelet Count 103 bil/L (150-400)
[2016-09-20 04:38] LABS: INR 1.2 ratio
[2016-09-20 04:49] LABS: Magnesium 2.1 mg/dL (1.6-2.6); Phosphorus 3.7 mg/dL (2.5-4.9)
--- NOTE | 2016-09-20 06:21 | NUR ---
Respiratory O2 @ 4L NC, sats 93-94%, Pt placed on Trilogy around midnight per RT, with 4 L O2 bleed in sats 90-94%. Pt only tolerated the Trilogy mask for about 2 hours then refused to put it back on. O2 @ 4L NC placed on for the rest of the night with SpO2 sats 88-94% per continuous pulse oximetry. Bilateral lung sounds are diminished with scattered wheezes.
[2016-09-20] MEDS ORDERED: predniSONE 20 mg Tablet PO SCH (08:30)
[2016-09-20] MEDS: Erythromycin 0.5% 3.5 Gm Ophthalmic Ointment BOTH_EYES SCH ×3 (09:37→19:58)
[2016-09-20] MEDS: predniSONE 20 mg Tablet PO SCH (09:37)
--- NOTE | 2016-09-20 16:52 | NUR ---
Resp: SpO2 88-90% on 2L NC, pt stating "a little short of breath". Pt SpO2 down to high 70s o RA. Pt requiring 4L o2 NC to keep SpO2 88-90% with activity. MD made aware. Ongoing care.
--- NOTE | 2016-09-20 16:52 | NUR ---
Social Work Note: Continued discharge Planning Data& Assessment: Per PT pt has progressed to be able to go home with home health services. SW met with pt at bedside to discuss discharge planning. Pt explained that he is not comfortable with home health PT coming to his home and leaving home is physically and emotionally taxing for him and he is not agreeable to outpt PT. Pt would like to work with PT again tomorrow to see how he does physically. Pt may also require home o2 at discharge. SW to follow for possible DME obtainment at discharge as well. Pt denies any other needs at this time. SW to follow up with pt tomorrow regarding discharge planning. Plan: Anticipated discharge home with Home Health if pt is agreeable. Pt denies any other needs at this time. SW to follow up with pt tomorrow regarding discharge planning. SUSANNA Santillan
--- NOTE | 2016-09-20 20:52 | PCM.PNMED ---
Subjective Date of Service Sep 20, 2016 Nesha Salinas is a 76 male with Chronic back pain, COPD/asthma, associated with secondary chronic polycythemia presents to ED with secondary to 2 weeks of increasing somnolence and generalized weakness and lethargy. per patient's , patient had a ground-level fall on August 28 striking head. He did not seek medical attention after fall. Over the last 2 weeks since states he has come increasingly sleepy and tired with a decrease in appetite. Some reported dry cough but unclear if patient had fever or chills. No sick contacts at the home. Overnight Events. No acute events overnights. Mr. Saleem Salinas remains drowsy and tired. He was conversational in bed and tolerating 4L O2. The patient reports that he feels better than the day prior however he states that he doesn't feel safe going home just yet. The patient denies headache, dizziness, sore throat, cough, chest pain, abdominal pain, nausea, vomiting, constipation, and diarrhea. The patient is voiding and eliminating without difficulty. He is not ambulating very effectively due to greatly increased O2 demand. Exam Vital Signs Vital Sign - Last Date Time Temp Pulse Resp B/P Pulse Ox O2 Delivery O2 Flow Rate FiO2 09/20/16 08:18 83 20 88 Nasal Cannula 1.00 09/20/16 03:40 36.5 149/86 09/17/16 03:31 40 Intake and Output 09/19/16 09/19/16 09/20/16 Cumulative From/Thru 15:00 23:00 07:00 09/15/16 11:56 - 09/20/16 06:21 Intake Total 910 ml 1200 ml 9570 ml Output Total 2400 ml 1500 ml 8400 ml Balance -1490 ml -300 ml 1170 ml Intake Oral 910 ml 1200 ml 5630 ml IV Total 3940 ml Output Urine Total 2400 ml 1500 ml 8400 ml # Voids 3 # Bowel Movements 3 Exam General: Elderly gentleman lying in bed with O2 nasal canula at 4L controlling respiratory distress. He is well-developed, well-nourished, appropriately interactive HEENT: Normocephalic, atraumatic. External ears without defect. Pupils equal, round, and reactive to light and accommodation. Anicteric sclerae, moist conjunctivae, and no lid lag. Oropharynx free of erythema and cobble stoning with moist mucosa. Neck: Supple with full range of motion. No jugular venous distension. No bruits. No lymphadenopathy or thyromegaly. Cardiovascular: Regular rate and rhythm with no murmurs, rubs, or gallops appreciated Pulmonary: Clear to auscultation bilaterally with no crackles, wheezes, or rhonchi. Respiratory effort increased with no use of accessory muscles. Abdomen: Bowel tones present. Soft, nontender, nondistended. No hepatosplenomegaly or masses appreciated. Extremities: No clubbing, cyanosis, edema, or lymphadenopathy appreciated. Skin: Normal temperature, turgor, very dry distal upper extremities; no rash, ulcers, or subcutaneous nodules appreciated. Neurological: Cranial nerves grossly intact. Normal muscle strength, tone, and bulk. Reflexes, coordination, and sensory function within normal limits. No known gait impairment. Psychiatric: Normal mood and affect. Alert and oriented to person, place, and time. IVs and Medications Medications Reviewed: Medications were reviewed in detail Lab and Diagnostics Result Diagram: 09/20/16 0345 09/20/16 0345 X-Rays, CTs and MRIs X-RAY CHEST ONE VIEW, PORTABLE IMPRESSION: Small right pleural effusion and basilar opacity consistent with compressive atelectasis, pneumonia or neoplasm. Continued radiographic surveillance to resolution is recommended. Dictated by: Hermilo Turner [facility] Interpreted: Aba Silverman MD on 09/15/2016 at 13:07 CT BRAIN WITHOUT CONTRAST IMPRESSION: No acute intracranial abnormality. Dictated by: Minnie Nguyễn M.D. on 09/15/2016 at 13:00 CT CHEST WITH CONTRAST IMPRESSION: 1. Right basilar opacity with small right-sided pleural fluid collection compatible with pneumonia, aspiration or compressive atelectasis. Please correlate with clinical and laboratory data. 2. Right pleural calcification stable compared to 06/06/2015. 3. Atherosclerosis including the coronary vascular. 4. Ascites. 5. Liver has slightly nodular margins suspicious for hepatic cirrhosis. Please correlate to clinical and laboratory data. Dictated by: Zuleyma Gorman MD, PhD on 09/15/2016 at 15:12 . Cardiac Echo Impressions Echocardiogram Interpretation Summary: 1) Borderline concentric left ventricular hypertrophy with normal size and function (EF 60-65%). 2) Moderately dilated right ventricle with mildly to moderately reduced systolic function. 3) Septal flattening in systole suggestive of right ventricular pressure overload. 4) Severe biatrial enlargement. 5) Calcific aortic valve with moderate aortic stenosis. 6) Calcific mitral valve with no significant stenosis or regurgitation. 7) Pulmonary hypertension present, estimated systolic pulmonary pressures of 53mmHg. 8) Bilateral pleural effusions present. 9) Compared to the Echo done 12/24/2015, pulmonary pressures are higher and right ventricular dysfunction is present on today's study. . Additional Diagnostics US ABDOMEN IMPRESSION: 1. Mild increase in hepatic parenchymal echogenicity with scalloped hepatic capsule suggestive of cirrhosis. No discrete focal hepatic abnormality seen. 2. Minimal perihepatic and perisplenic ascites present with volume not sufficient for safe paracentesis. 3. Right renal superior lateral cyst. Dictated by: Hermilo SANTACRUZ Interpreted: Aba Silverman MD on 09/17/2016 at 13:21 ABG DateTimeAnalyzed 13:11:00 -_ pH ____7.297 - 7.350 7.450 pCO2 ___64.6__ -mmHg 35.0 45.0 pO2 ___59.7__ -mmHg 69.0 116 HCO3- ___30.6__ -mmol/L 22.0 26.0 Assessment & Plan Saleem Salinas is a 76-year-old male with a past medical history significant for chronic back pain, COPD with associated polycythemia secondary to chronic hypoxemia who presented to [facility] ED for 2 weeks of increasing somnolence and generalized weakness and lethargy who is now being treated for hypoxemic hypercarbic respiratory failure secondary to COPD exacerbation. Hospital day #6. 1. Acute hypoxemic hypercarbic respiratory failure secondary to COPD exacerbation, present on admission. Ongoing. - Patient likely had a non-specific pulmonary infection that triggered his COPD exacerbation. - Continue BIPAP during day PRN and mandatory use at night. If patient becomes confused BIPAP should be used. - DuoNeb every 4 hours while awake. Albuterol nebs every two hours as needed for dyspnea. - At some point patient will need formal PFTs and follow up with pulmonology. - Will be discharged to SNF due to inability to ambulate without O2 desaturating. - Pulmonology consulted and signed off. We appreciate their time and recommendations. - Patient will require O2 at home and while ambulating. 2. Acute COPD exacerbation, present on admission. Resolving. - Patient likely requires O2 sat level at around 88-92%. - Patient will require Trilogy unit for home. - Continue azithromycin 500 mg daily x 5 days. Ceftriaxone x 1 dose in ED. - Sputum and blood cultures negative. Viral PCR negative. Legionella and strep pneumo urine antigens negative. - Started steroid taper: Previously on Solu-Medrol 60mcg Q8 IV (09/15-09/18) now switched to equivalent prednisone dose of 50 mg once a day and will decrease by 10 mg daily. 3. Atrial flutter with variable block, present on admission. Active. - If patient were to have true tachybradycardia syndrome he would qualify for pacemaker placement in the future. - Heparin ggt discontinued. - Continue home ASA and statin. - Echocardiogram as above. - Cardiology consulted and signed off. We appreciate their time and recommendations. 4. Acute encephalopathy, present on admission. Resolved. - Likely related to his respiratory failure and infection. CT head negative for bleeding. - Neurologic status improved greatly today. - Avoid benzodiazepines, high risk for delirium 5. Thrombocytopenia, not present on admission. Improving. - The patient's platelets drop significantly overnight. Initial platelet count 190. Platelets today 103. - Repeat platelet count with morning labs. - Ordered coags for with morning labs. - Monitor for signs of bleeding. 6. Leukopenia, present on admission. Resolved. - WBC 6.5 on admission, dropped to 1.7. - Continue to monitor daily. Chronic problems: Chronic polycythemia, likely secondary to chronic hypoxemia, present on admission. Stable. - Per Dr. Lanier the patient should be considered for phlebotomy every couple months for a hematocrit greater than 55%. - We will need to continue to have this evaluated as an outpatient. Hypertension, chronic. - Continue Amlodipine 5 mg daily - Torsemide 20 PO daily. Dyslipidemia, chronic. - Continue Lovastatin 20 mg daily. Probable liver cirrhosis with associated ascites, present on admission. Chronic - Likely secondary to long-standing remote alcohol use. - CT chest and abdominal ultrasound consistent with cirrhotic changes of the liver and a small amount of ascites, as above. - Patient will need to have this evaluated as an outpatient. - Acetaminophen as needed for mild pain/fever/headache - Bowel regimen as needed - Antiemetic as needed High Risk Medications: Disposition: Anticipate discharge in24-48 hours with home O2 and trilogy unit. Home with home health or [facility]. . Pain Evaluation: Adequate Pain Control VTE Mechanical Devices: Intermittant Pneumatic CD Resuscitation Status: CPR: Attempt Resuscitation Attending Statement The patient was seen and examined together with Dr. Westbrook on 09-20-16 and I agree with the history, exam and plan as outlined in the note above. JESSI WESTBROOK DO Sep 20, 2016 08:31 Randal Bermeo MD Sep 21, 2016 16:57
[2016-09-21] VITALS (10 sets, daily range): BP systolic 121–157; BP diastolic 79–95; PULSE 69–96; RESP 18–20; O2SAT 90–98
[2016-09-21] MEDS: Albuterol-Ipratropium 3 mL Inhalation Solution NEB SCH ×4 (01:44→13:42)
--- NOTE | 2016-09-21 05:30 | NUR ---
Oxygenation Pt takes off Trilogy to toilet and immediately oxygen saturations drop to high 70's low 80's. Pt cannot tolerate to be without supplemental oxygen for any period of time.
--- NOTE | 2016-09-21 05:43 | NUR ---
Heart Rhythm Pt had a triple non-conducted PAC at 0540. [employer] send an [employer] SPARQCode page to the night resident.
[2016-09-21 05:54] LABS: BASOPHILS % (AUTO) 0 % (0-3); EOSINOPHILS % (AUTO) 0 % (0-5); MONOCYTES % (AUTO) 9.6 % (4-12); Mean Corpuscular Hemoglobin 25.8 pg (27.0-35.0); Mean Corpuscular Volume 84.1 fL (81-100); NEUTROPHILS % (AUTO) 78.3 % (40-74); Platelet Count 94 bil/L (150-400)
[2016-09-21] MEDS: Erythromycin 0.5% 3.5 Gm Ophthalmic Ointment BOTH_EYES SCH (08:38)
[2016-09-21] MEDS: predniSONE 20 mg Tablet PO SCH (08:38)
--- NOTE | 2016-09-21 11:12 | PCM.DIMED ---
JESSI ARELLANO DO 09/21/16 1051: Discharge Instructions Date of Service Sep 21, 2016 Dates of Hospitalization Sep 15, 2016 at 16:36 Discharge Diagnosis Discharge Diagnosis 1. Acute Hypoxemic Hypercarbic respiratory failure secondary to COPD exacerbation, present on admission. Ongoing. 2. Acute COPD exacerbation, present on admission. Resolving. 3. Atrial flutter with variable block, present on admission. Active. 4. Acute encephalopathy, present on admission. Resolved. 5. Thrombocytopenia, not present on admission. Improving. 6. Leukopenia, present on admission. Resolved. Chronic polycythemia, likely secondary to chronic hypoxemia, present on admission. Stable. Hypertension, chronic. Dyslipidemia, chronic. Probable liver cirrhosis with associated ascites, present on admission. Chronic Medication Instructions Continue medications: Atorvastatin 5mg daily at bedtime. Aspirin 81 mg daily. Albuterol every 2 hours as needed. Amlodipine 5mg daily. New medication: Steroid taper to begin today for 5 days. - Take prednisone 30 mg by mouth for one day, - Then 20 mg for one day, - Then finally 10 mg for one day. Azithromycin 500 mg on Tuesday, , Tuesday, to benefit COPD. Torsemide 20 mg daily. Diet Heart Healthy Activity Home Health Phyical Therapy Call your provider Shortness of breath, Chest pain, Weakness (unilateral) Patient Instructions Follow-up plan Follow up with Primary care provider Dr. Yo to closely manage change in medication home O2 status and Trilogy use at home. Follow-up Provider: Eugenio Yo MD Follow-up with PCP in: 1 week Randal Bermeo MD 09/22/16 1653: Discharge Instructions Attending's Statement The patient was seen and examined together with Dr. Arellano on 09-21-16 and I agree with the history, exam and plan as outlined in the note above. JESSI ARELLANO DO Sep 21, 2016 10:51 Randal Bermeo MD Sep 22, 2016 16:53
[2016-09-21] MEDS ORDERED: TORS20TA PO (11:15)
[2016-09-21] MEDS ORDERED: ZIT250 PO (11:15)
--- NOTE | 2016-09-21 11:40 | NUR ---
Called and left additional message for Gisela Dunham CM at [facility] [phone] patient needs to be reviewed for SNF transfer and is likely to be ready today. New PT notes in this morning as well as MD notes recommending SNF. Updated [employer] Addendum: 09/21/16 at 1314 by CHANDLER RIOJAS CM Gisela Dunham has approved patient for SNF transfer when ready. [facility] can accept patient when ready pending vie med and trilogy set up. Updated [employer] Addendum: 09/21/16 at 1336 by CHANDLER RIOJAS CM Trilogy belongs to patient and [facility] will transport at 1430. Updated [employer]
[2016-09-21] MEDS ORDERED: HYDR-4003 PO (13:58)
--- NOTE | 2016-09-21 14:33 | NUR ---
Social Work Note: Discharge Data& Assessment: Per MD pt is medically ready for discharge. Saleem Salinas is a 76 year old male admitted on 09/15/2016 for acute respiratory failure. Per MD pt is medically improved and ready to discharge to [facility] via wheelchair van arranged by the facility. [facility] Authorization obtained. Pt updated and agreeable to plan. MD and RN notified and agreeable to plan. No other discharge needs identified. Plan: Per pt is medically improved and ready to discharge to [facility] via wheelchair van arranged by the facility. All updated and agreeable to plan. SUSANNA Santillan
--- NOTE | 2016-09-21 14:43 | NUR ---
discharge of patient Reviewed discharge instructions with patient, patient verbalized understanding. Pt discharge via wheelchair with prescriptions, instructions and trilogy. IV and telemetry previously discontinued. Pt left hospital to [facility], picked up by [facility].
--- NOTE | 2016-09-23 18:10 | PCM.DC.MED ---
Discharge Summary Date of Service Sep 23, 2016 Dates of Hospitalization Date of Hospital Admission Sep 15, 2016 at 16:36 Date of Discharge: Sep 21, 2016 Providers: Admitting Physician: Karri Rios MD Primary Care Physician: Eugenio Yo MD Attending Physician: Karri Rios MD Diagnosis at Time of Discharge Diagnosis at Time of Discharge 1. Acute Hypoxemic Hypercarbic respiratory failure secondary to COPD exacerbation, present on admission. Ongoing. 2. Acute COPD exacerbation, present on admission. Resolving. 3. Atrial flutter with variable block, present on admission. Active. 4. Acute encephalopathy, present on admission. Resolved. 5. Thrombocytopenia, not present on admission. Improving. 6. Leukopenia, present on admission. Resolved. Chronic polycythemia, likely secondary to chronic hypoxemia, present on admission. Stable. Hypertension, chronic. Dyslipidemia, chronic. Probable liver cirrhosis with associated ascites, present on admission. Chronic Procedures XRay, CTs & MRIs X-RAY CHEST ONE VIEW, PORTABLE IMPRESSION: Small right pleural effusion and basilar opacity consistent with compressive atelectasis, pneumonia or neoplasm. Continued radiographic surveillance to resolution is recommended. Dictated by: Hermilo Turner [facility] Interpreted: Aba Silverman MD on 09/15/2016 at 13:07 CT BRAIN WITHOUT CONTRAST IMPRESSION: No acute intracranial abnormality. Dictated by: Minnie Nguyễn M.D. on 09/15/2016 at 13:00 CT CHEST WITH CONTRAST IMPRESSION: 1. Right basilar opacity with small right-sided pleural fluid collection compatible with pneumonia, aspiration or compressive atelectasis. Please correlate with clinical and laboratory data. 2. Right pleural calcification stable compared to 06/06/2015. 3. Atherosclerosis including the coronary vascular. 4. Ascites. 5. Liver has slightly nodular margins suspicious for hepatic cirrhosis. Please correlate to clinical and laboratory data. Dictated by: Zuleyma Gorman MD, PhD on 09/15/2016 at 15:12 . Cardiac Echo Impression Echocardiogram Interpretation Summary: 1) Borderline concentric left ventricular hypertrophy with normal size and function (EF 60-65%). 2) Moderately dilated right ventricle with mildly to moderately reduced systolic function. 3) Septal flattening in systole suggestive of right ventricular pressure overload. 4) Severe biatrial enlargement. 5) Calcific aortic valve with moderate aortic stenosis. 6) Calcific mitral valve with no significant stenosis or regurgitation. 7) Pulmonary hypertension present, estimated systolic pulmonary pressures of 53mmHg. 8) Bilateral pleural effusions present. 9) Compared to the Echo done 12/24/2015, pulmonary pressures are higher and right ventricular dysfunction is present on today's study. . Other Diagnostics US ABDOMEN IMPRESSION: 1. Mild increase in hepatic parenchymal echogenicity with scalloped hepatic capsule suggestive of cirrhosis. No discrete focal hepatic abnormality seen. 2. Minimal perihepatic and perisplenic ascites present with volume not sufficient for safe paracentesis. 3. Right renal superior lateral cyst. Dictated by: Hermilo SANTACRUZ Interpreted: Aba Silverman MD on 09/17/2016 at 13:21 AB DateTimeAnalyzed 13:11:00 -_ pH ____7.297 - 7.350 7.450 pCO2 ___64.6__ -mmHg 35.0 45.0 pO2 ___59.7__ -mmHg 69.0 116 HCO3- ___30.6__ -mmol/L 22.0 26.0 Brief History This is a 76 year old male with history significant for COPD who presented to [facility] with generalized weakness and somnolence. The patient was not able to answer questions today due to BIPAP mask. Briefly from the admit note, the somnolence and weakness began two weeks ago which was accompanied by a decreased appetite. Throughout today he has continued to be somnolent despite BIPAP. Of note, when his oxygen was decreased on the bipap he became more alert. ROS not able to be obtained as patient will not answer questions with bipap mask on. Hospital Course Saleem Salinas is a 76-year-old male with a past medical history significant for chronic back pain, COPD with associated polycythemia secondary to chronic hypoxemia who presented to [facility] ED for 2 weeks of increasing somnolence and generalized weakness and lethargy who is now being treated for hypoxemic hypercarbic respiratory failure secondary to COPD exacerbation. Hospital day #6. 1. Acute hypoxemic hypercarbic respiratory failure secondary to COPD exacerbation, present on admission. Ongoing. - Patient likely had a non-specific pulmonary infection that triggered his COPD exacerbation. - Continue BIPAP during day PRN and mandatory use at night. If patient becomes confused BIPAP should be used. - DuoNeb every 4 hours while awake. Albuterol nebs every two hours as needed for dyspnea. - At some point patient will need formal PFTs and follow up with pulmonology. - Will be discharged to SNF due to inability to ambulate without O2 desaturating. - Pulmonology consulted and signed off. We appreciate their time and recommendations. - Patient will require O2 at home and while ambulating. 2. Acute COPD exacerbation, present on admission. Resolving. - Patient likely requires O2 sat level at around 88-92%. - Patient will require Trilogy unit for home. - Continue azithromycin 500 mg daily x 5 days. Ceftriaxone x 1 dose in ED. - Sputum and blood cultures negative. Viral PCR negative. Legionella and strep pneumo urine antigens negative. - Started steroid taper: Previously on Solu-Medrol 60mcg Q8 IV (09/15-09/18) now switched to equivalent prednisone dose of 50 mg once a day and will decrease by 10 mg daily. 3. Atrial flutter with variable block, present on admission. Active. - If patient were to have true tachybradycardia syndrome he would qualify for pacemaker placement in the future. - Heparin ggt discontinued. - Continue home ASA and statin. - Echocardiogram as above. - Cardiology consulted and signed off. We appreciate their time and recommendations. 4. Acute encephalopathy, present on admission. Resolved. - Likely related to his respiratory failure and infection. CT head negative for bleeding. - Neurologic status improved greatly today. - Avoid benzodiazepines, high risk for delirium 5. Thrombocytopenia, not present on admission. Improving. - The patient's platelets drop significantly overnight. Initial platelet count 190. Platelets today 103. - Repeat platelet count with morning labs. - Ordered coags for with morning labs. - Monitor for signs of bleeding. 6. Leukopenia, present on admission. Resolved. - WBC 6.5 on admission, dropped to 1.7. - Continue to monitor daily. Chronic problems: Chronic polycythemia, likely secondary to chronic hypoxemia, present on admission. Stable. - Per Dr. Lanier the patient should be considered for phlebotomy every couple months for a hematocrit greater than 55%. - We will need to continue to have this evaluated as an outpatient. Hypertension, chronic. - Continue Amlodipine 5 mg daily - Torsemide 20 PO daily. Dyslipidemia, chronic. - Continue Lovastatin 20 mg daily. Probable liver cirrhosis with associated ascites, present on admission. Chronic - Likely secondary to long-standing remote alcohol use. - CT chest and abdominal ultrasound consistent with cirrhotic changes of the liver and a small amount of ascites, as above. - Patient will need to have this evaluated as an outpatient. - Acetaminophen as needed for mild pain/fever/headache - Bowel regimen as needed - Antiemetic as needed High Risk Medications: Disposition: Anticipate discharge in24-48 hours with home O2 and trilogy unit. Home with home health or [facility]. . Exam Vital Signs (Last) Date Time Temp Pulse Resp B/P Pulse Ox O2 Delivery O2 Flow Rate FiO2 09/21/16 13:42 89 20 92 Nasal Cannula 3.00 09/21/16 11:51 36.4 121/79 09/17/16 03:31 40 Exam General: Elderly gentleman lying in bed with O2 nasal canula at 4L controlling respiratory distress. He is well-developed, well-nourished, appropriately interactive HEENT: Normocephalic, atraumatic. External ears without defect. Pupils equal, round, and reactive to light and accommodation. Anicteric sclerae, moist conjunctivae, and no lid lag. Oropharynx free of erythema and cobble stoning with moist mucosa. Neck: Supple with full range of motion. No jugular venous distension. No bruits. No lymphadenopathy or thyromegaly. Cardiovascular: Regular rate and rhythm with no murmurs, rubs, or gallops appreciated Pulmonary: Clear to auscultation bilaterally with no crackles, wheezes, or rhonchi. Respiratory effort increased with no use of accessory muscles. Abdomen: Bowel tones present. Soft, nontender, nondistended. No hepatosplenomegaly or masses appreciated. Extremities: No clubbing, cyanosis, edema, or lymphadenopathy appreciated. Skin: Normal temperature, turgor, very dry distal upper extremities; no rash, ulcers, or subcutaneous nodules appreciated. Neurological: Cranial nerves grossly intact. Normal muscle strength, tone, and bulk. Reflexes, coordination, and sensory function within normal limits. No known gait impairment. Psychiatric: Normal mood and affect. Alert and oriented to person, place, and time. Test 09/15/16 13:09 09/15/16 14:33 09/16/16 04:45 09/16/16 04:48 Lactic Acid Level 0.9mmol/L (0.4-2.0) Procalcitonin < 0.05ng/mL (See Comment) Ammonia 47ug/dL (18-53) Hemoglobin A1c 6.2% (4.8-5.6) Urine Color Yellow (YELLOW) Urine Appearance Clear (CLEAR,HAZY) Urine pH 5.5 (5.0-8.0) Urine Specific [place] 1.025 (1.003-1.035) Urine Protein Negativemg/dL (NEG,TRACE) Urine Glucose (UA) Negativemg/dL (NEGATIVE) Urine Ketones Tracemg/dL (NEGATIVE) Urine Occult Blood Negative (NEGATIVE) Urine Nitrite Negative (NEGATIVE) Urine Bilirubin Negative (NEGATIVE) Urine Urobilinogen Normalmg/dL (NORMAL) Urine Leukocyte Esterase Negative (NEGATIVE) Urine RBC 0-2/hpf (0-2) Urine WBC 0-5/hpf (0-5) Urine Epithelial Cells Occasional/hpf (NONE-MOD) Urine Crystals None seen (NONE SEEN) Urine Bacteria None/hpf (NONE-FEW) Urine Hyaline Casts None/lpf (NONE) Urine Granular Casts None seen (NONE SEEN) Urine Waxy Casts None seen (NONE SEEN) Urine Red Blood Cell Casts None seen (NONE SEEN) Urine White Blood Cell Casts None seen (NONE SEEN) Urine Mucus None seen (None Seen) Urine Trichomonas None seen (NONE SEEN) Urine Yeast None (NONE SEEN) Urine Culture Reflexed Not indicated Urine Legionella pneumophilia Ag Negative (Negative) Test 09/16/16 13:00 09/16/16 14:55 09/18/16 04:50 09/20/16 03:45 Hold Urine Received (Received) Total Creatine Kinase 35U/L (21-232) Troponin T < 0.010ug/L (0.0-0.011) Thyroid Stimulating Hormone (TSH) 1.760uIU/mL (0.450-4.500) Activated Partial Thromboplast Time 29.4sec (22.8-33.0) Total Bilirubin 0.3mg/dL (0.0-1.2) Aspartate Amino Transf (AST/SGOT) 19U/L (0-50) Alanine Aminotransferase (ALT/SGPT) 15U/L (0-44) Alkaline Phosphatase 54U/L (25-160) Total Protein 5.9g/dL (6.4-8.4) Albumin 3.4g/dL (3.4-5.0) Prothrombin Time 12.9sec (8.1-12.5) Prothromb Time International Ratio 1.20ratio Phosphorus Level 3.7mg/dL (2.5-4.9) Magnesium Level 2.1mg/dL (1.6-2.6) Test 09/21/16 05:20 White Blood Count 6.1th/mm3 (3.8-10.1) Red Blood Count 6.36mil/mm3 (4.40-5.80) Hemoglobin 16.4g/dL (13.8-17.2) Hematocrit 53.5% (41.0-50.0) Mean Corpuscular Volume 84.1fL (81-100) Mean Corpuscular Hemoglobin 25.8pg (27.0-35.0) Mean Corpuscular Hemoglobin Concent 30.7% (32.0-37.0) Red Cell Distribution Width 18.5% (12.3-15.4) Platelet Count 94bil/L (150-400) Neutrophils (%) (Auto) 78.3% (40-74) Lymphocytes (%) (Auto) 11.9% (14-46) Monocytes (%) (Auto) 9.6% (4-12) Eosinophils (%) (Auto) 0% (0-5) Basophils (%) (Auto) 0% (0-3) Sodium Level 143mEq/L (134-144) Potassium Level 4.7mEq/L (3.5-5.2) Chloride Level 97mEq/L (97-108) Carbon Dioxide Level 41mmol/L (18-29) Blood Urea Nitrogen 32mg/dL (8-27) Creatinine 0.76mg/dL (0.76-1.27) Estimat Glomerular Filtration Rate 106mL/min (>59) Glucose Level 87mg/dL (60-99) Calcium Level 8.5mg/dL (8.5-10.1) Discharge Medications Discharge Medications Amlodipine (Amlodipine) 5 Mg Tablet 5 MG PO DAILY (Reported) Aspirin (Aspirin) 81 Mg Tablet 81 MG PO DAILY (Reported) Azithromycin (Zithromax) 250 Mg Tablet 500 MG PO DIRECTED Take on Tuesday, , and Tuesday. Prescribed by: JESSI ARELLANO DO Cholecalciferol (Vitamin D3) (Vitamin D) 1,000 Unit Tablet 1,000 UNIT PO DAILY ( Reported) Lovastatin (Lovastatin) 20 Mg Tablet 20 MG PO HS (Reported) Torsemide (Demadex) 20 Mg Tablet 40 MG PO DAILY Prescribed by: JESSI ARELLANO DO As needed Albuterol HFA (Proair HFA) 8.5 Gm Hfa.aer.ad 2 PUFFS INHALATION Q4H PRN PRN For Shortness of Breath (Reported) Hydrocodone-Acetaminophen 5-325 mg (Hydrocodone-Acetaminophen 5-325 mg) 1 Each Tablet 1 TABLET PO BID PRN PRN For Pain (Reported) Hydrocodone-Acetaminophen 5-325 mg (Hydrocodone-Acetaminophen 5-325 mg) 1 Each Tablet 1 TABLET PO Q4H PRN PRN For Pain Prescribed by: JESSI ARELLANO DO Additional med instructions Continue medications: Atorvastatin 5mg daily at bedtime. Aspirin 81 mg daily. Albuterol every 2 hours as needed. Amlodipine 5mg daily. New medication: Steroid taper to begin today for 5 days. - Take prednisone 30 mg by mouth for one day, - Then 20 mg for one day, - Then finally 10 mg for one day. Azithromycin 500 mg on Tuesday, , Tuesday, to benefit COPD. Torsemide 20 mg daily. Followup Plan Follow-up plan Follow up with Primary care provider Dr. Yo to closely manage change in medication home O2 status and Trilogy use at home. Discharge Diet: Heart Healthy Discharge Activity: Home Health Phyical Therapy Follow-up Provider: Eugenio Yo MD Follow-up with PCP in: 1 week Attending Statement The patient was seen and examined together with Dr. Arellano on 09-23-16 and I agree with the history, exam and plan as outlined in the note above. copies to: Eugenio Yo MD, COREY P DO Sep 23, 2016 18:08 Randal Bermeo MD Oct 04, 2016 08:25
[2016-11-02] MEDS ORDERED: TIOT18CA3 IH (14:34)
== END 2016-09-21 14:35 | DRG 189 ==
LOC: SED 11:43 → PCC 16:36
PROVIDERS: ADMIT Hospitalist; ATTEND Hospitalist
PROC: 4A033R1 Measurement of Arterial Saturation, Peripheral, Percutaneous Approach (ICD-10-PCS; principal; 2016-09-15)
PROC: 5A09358 Assistance with Respiratory Ventilation, Less than 24 Consecutive Hours, Intermittent Positive Airway Pressure (ICD-10-PCS; 2016-09-15)
DX: J96.02 Acute respiratory failure with hypercapnia (principal); G93.40 Encephalopathy, unspecified; I48.92 Unspecified atrial flutter; J44.1 Chronic obstructive pulmonary disease with (acute) exacerbation; R18.8 Other ascites; J96.01 Acute respiratory failure with hypoxia; Z66 Do not resuscitate; D75.1 Secondary polycythemia; I10 Essential (primary) hypertension; Z87.891 Personal history of nicotine dependence; E78.5 Hyperlipidemia, unspecified; D69.6 Thrombocytopenia, unspecified

== ENCOUNTER 2016-12-14 11:00 | Emergency (ER) | payer MEDICARE ==
[~2016-12-14 11:00] MED LIST changes: -AMLO5TAB2 PO; +ASPI-973 PO; +CHOL100043 PO; -FURO40TA4 PO; +TIOT18CA3 IH; +TORS20TA PO
--- NOTE | 2016-12-14 11:13 | ED.REPORT ---
HPI-General Illness Date of Service Dec 14, 2016 ED Provider: Edinson Woodson MD Pt is a 76 year old male with a hx of COPD, asthma, polycythemia, HTN, afib, and aortic stenosis presenting to the ED due to possible high potassium and dizziness. Associated symptoms include diaphoresis, palpitations. Denies nausea , vomiting, black stool, dysuria, chest pain, SOB. FAll 3 days ago, syncopal likely. Had neg CT brain yesterday. He states that the reason he fell and hit his head the other day was because he had a syncopal episode. The episode was caused by sudden onset dizziness. Pt does not remember falling, but does remember waking up from the syncopal episode. Pt was discharged from [facility] on the 13 of October after pneumonia admit. Pt reports that he was put on Spirolactone by his PMD in September, but was taken off last night. Also now on Lasix not torsemide. Pt was seen yesterday for a head injury due to a syncopal episode 4 days ago and had a CT scan showing no acute intracranial abnormalities, cerebral volume loss and chronic microvascular ischemic changes, and small lucencies in the left frontal bone. Nursing Notes Chief Complaint: Recent fall Nursing Notes Reviewed: Yes Allergies: Coded Allergies: bee venom protein (honey bee) (Verified Allergy, Unknown, 12/14/16) Scheduled Aspirin (Aspirin) 81 Mg Tablet 81 MG PO DAILY Cholecalciferol (Vitamin D3) (Vitamin D) 1,000 Unit Tablet 1,000 UNIT PO DAILY Lovastatin (Lovastatin) 20 Mg Tablet 20 MG PO HS Tiotropium [place] (Spiriva) 18 Mcg Cap.w.dev 18 MCG IH DAILY Torsemide (Demadex) 20 Mg Tablet 40 MG PO DAILY Scheduled PRN Albuterol HFA (Proair HFA) 8.5 Gm Hfa.aer.ad 2 PUFFS INHALATION Q4H PRN PRN For Shortness of Breath Hydrocodone-Acetaminophen 5-325 mg (Hydrocodone-Acetaminophen 5-325 mg) 1 Each Tablet 1 TABLET PO BID PRN PRN For Pain Hydrocodone-Acetaminophen 5-325 mg (Hydrocodone-Acetaminophen 5-325 mg) 1 Each Tablet 1 TABLET PO Q4H PRN PRN For Pain General Time Seen by MD: 11:11 Chief Complaint Dizziness Hx Obtained From: Patient Arrived By: Walk-in Sudden in Onset?: No Onset Occurred: 4 days ago Symptom Duration: Since onset Caused by: Fall on ground Severity: Current: No pain currently Severity: Maximum: No pain Recent Healthcare: Recent doctor visit, Recent hospitalization Similar Sx Previous: Yes Past Medical History Past Medical History Afib COPD/asthma, associated with secondary chronic polycythemia. Hematocrit was 58% in June 2015. Insomnia Hyperlipidemia Hypertension Aortic stenosis Back pain Erythrocytosis Prediabetes Gout Past Surgical History endoscopy Smoking History Former Smoker Ambulatory Status Independent Review of Systems Full Review of Systems Respiratory: Denies: Shortness of breath Cardiovascular: Reports: Palpitations, Denies: Chest pain GI: Denies: Nausea, Vomiting Male: Denies Dysuria Skin: Reports Diaphoresis Neurologic: Reports: Dizziness Complete sys rev & neg: except as marked. Physical Exam ambulatory with steady gait, R forehead abrasion. Vital Signs Vital Signs Date Time Temp Pulse Resp B/P Pulse Ox O2 Delivery O2 Flow Rate FiO2 12/14/16 16:55 36.8 78 13 103/58 96 Room Air 12/14/16 16:17 36.8 78 13 103/58 96 Room Air 12/14/16 12:45 73 14 93/52 96 Room Air 12/14/16 11:14 36.2 74 16 120/88 94 Room Air Initial VS: Reviewed General/Constitutional: Well-developed, Well-nourished Head / Eyes: Atraumatic, Normocephalic, PERRL ENT: Mucous membranes moist, Conjunctiva normal, No scleral icterus Respiratory: Breath sounds normal, Clear to auscultation, No respiratory distress Extremities: Vascular intact, Neuro intact Skin: Warm, Dry, No cyanosis Neurologic: Alert, Oriented, Nonfocal Psychiatric: Mood/affect normal, Behavior normal, Normal thought content Cardiovascular: Heart rate NL, Regular rhythm, No gallop, No murmurs, No rubs Abdomen: Soft, Non-tender, BS normoactive Interpretation & Diagnostics Lab Results Interpretation Result Diagram: 12/14/16 1132 12/14/16 1132 Test 12/14/16 11:32 White Blood Count 6.7th/mm3 (3.8-10.1) Red Blood Count 5.47mil/mm3 (4.40-5.80) Hemoglobin 14.7g/dL (13.8-17.2) Hematocrit 44.9% (41.0-50.0) Mean Corpuscular Volume 82.1fL (81-100) Mean Corpuscular Hemoglobin 26.9pg (27.0-35.0) Mean Corpuscular Hemoglobin Concent 32.7% (32.0-37.0) Red Cell Distribution Width 18.6% (12.3-15.4) Platelet Count 178bil/L (150-400) Neutrophils (%) (Auto) 73.3% (40-74) Lymphocytes (%) (Auto) 17.6% (14-46) Monocytes (%) (Auto) 6.9% (4-12) Eosinophils (%) (Auto) 1.5% (0-5) Basophils (%) (Auto) 0.4% (0-3) Sodium Level 132mEq/L (134-144) Potassium Level 5.1mEq/L (3.5-5.2) Chloride Level 98mEq/L (97-108) Carbon Dioxide Level 21mmol/L (18-29) Blood Urea Nitrogen 31mg/dL (8-27) Creatinine 0.85mg/dL (0.76-1.27) Estimat Glomerular Filtration Rate 93mL/min (>59) Glucose Level 130mg/dL (60-99) Calcium Level 9.6mg/dL (8.5-10.1) Total Bilirubin 0.6mg/dL (0.0-1.2) Aspartate Amino Transf (AST/SGOT) 28U/L (0-50) Alanine Aminotransferase (ALT/SGPT) 32U/L (0-44) Alkaline Phosphatase 55U/L (25-160) Total Protein 6.7g/dL (6.4-8.4) Albumin 3.9g/dL (3.4-5.0) ECG Interpretation ECG Interpretation: No Peaked T waves. RBBB. Time: 11:22 Interpreted by: ED physician Normal ECG Interpretation: Normal rate (74), Normal sinus rhythm Re-Eval/Medical Decision Med Decision/Clinical Course Prob syncope 3 days ago and near syncope today. Hypotensive after arrival. Given NSx2 L, BP improved. Will hold diuretics. Given liver disease, may be persistenly hypotnesive. Time of Eval: 13:53 Patient Status: Condition improved Re-Evaluation/Progress Note: Performed physical exam and discussed PMHX. Time of Eval: 16:29 Patient Status: Condition improved Re-Evaluation/Progress Note: Discussed plan for discharge. Pt understands and agrees with plan. Consultation : Referral / Consult Name: Eugenio Yo MD Consulted With: Primary care physician Call Returned at: 13:08 Note: Discussed with Dr. Yo. Counseled Regarding: Diagnosis, Lab results, Need for follow-up, When/why to return to ED Discharge & Departure Primary Impression: Orthostatic hypotension Additional Impressions: Hypovolemia dehydration Concussion Encounter type: subsequent encounter Loss of consciousness presence/duration : without LOC Qualified Code: S06.0X0D - Concussion without loss of consciousness, subsequent encounter Disposition: Home Discharge Condition All VS Reviewed: Yes Condition: Improved Additional Instructions: ED evaluation included interview, exam, labs, ECG. We reviewed past records and spoke with Dr Yo. We gave IV fluids. Other than low blood pressure and dehydration we did not find an acute problem today. We gave IV fluids. Stop spironolactone and hold furosemide (your other water pill) for 2 days, then take every other day when you re-start it. Follow up with primary care soon. Return to ED for chest pain, fainting, fevers or shortness of breath. Referrals: Eugenio Yo MD (PCP) Scribe Attestation Portions of this note were transcribed by Allie Meredith. I, Dr. Woodson personally performed the history, physical exam and medical decision-making; I reviewed and confirmed the accuracy of the information in the transcribed note. Signed by : Ptarizia Sinha, 12/14/2016 at 1606. copies to: Eugenio Yo MD, Donald L MD Dec 14, 2016 11:13 ALLIE MEREDITH Dec 14, 2016 11:29
[2016-12-14 11:14] VITALS: BP 120/88; PULSE 74; RESP 16; O2SAT 94
[2016-12-14 11:40] LABS: BASOPHILS % (AUTO) 0.4 % (0-3); EOSINOPHILS % (AUTO) 1.5 % (0-5); MONOCYTES % (AUTO) 6.9 % (4-12); Mean Corpuscular Hemoglobin 26.9 pg (27.0-35.0); Mean Corpuscular Volume 82.1 fL (81-100); NEUTROPHILS % (AUTO) 73.3 % (40-74); Platelet Count 178 bil/L (150-400)
[2016-12-14 12:45] VITALS: BP 93/52; PULSE 73; RESP 14; O2SAT 96
[2016-12-14] MEDS ORDERED: 0.9% Sodium Chloride 1,000 ML IV ONE (12:50)
[2016-12-14] MEDS ORDERED: 0.9% Sodium Chloride 500 ML IV ONE (15:00)
[2016-12-14 16:17] VITALS: BP 103/58; PULSE 78; RESP 13; O2SAT 96
[2016-12-14 16:55] VITALS: BP 103/58; PULSE 78; RESP 13; O2SAT 96
== END 2016-12-14 16:55 | disposition home or self-care (01) ==
LOC: SED 11:00
DX: I95.1 Orthostatic hypotension (principal); S06.0X0D Concussion without loss of consciousness, subsequent encounter; W18.39XD Other fall on same level, subsequent encounter; Y93.89 Activity, other specified; Y92.89 Other specified places as the place of occurrence of the external cause; Y99.8 Other external cause status; E86.0 Dehydration; E86.1 Hypovolemia; R00.2 Palpitations; I11.9 Hypertensive heart disease without heart failure; I48.91 Unspecified atrial fibrillation; E78.5 Hyperlipidemia, unspecified; Z79.82 Long term (current) use of aspirin; Z87.891 Personal history of nicotine dependence; Z91.030 Bee allergy status
CPT/HCPCS: 36415; 80053; 85025; 93005; 96360; 96361; 99284; J7030; J7040